=== PATIENT | male | born 1960 | race Caucasian/White ===

== ENCOUNTER 2019-02-26 19:03 | Inpatient (IN) ==
[2019-02-26] MEDS ORDERED: ONDANSETRON 4 MG/2 ML VIAL IV ONE (19:32)
[2019-02-26] MEDS ORDERED: LORazepam 2 MG/ML VIAL IV ONE (19:32)
[2019-02-26] MEDS ORDERED: 0.9 % SODIUM CHLORIDE 1,000 ML IV ONE (19:33)
[2019-02-26] MEDS ORDERED: POTASSIUM CHLORIDE 20 MEQ, MAGNESIUM SULFATE 16.24 MEQ, THIAMINE 100 MG, MVI, ADULT NO.... IV SCH ×2 (19:45→22:28)
--- NOTE | 2019-02-26 20:05 | Emergency Department Note ---
Nausea/Vomiting/Diarrhea HPI - General Chief complaint: Nausea/Vomiting/Diarrhea Stated complaint: alcohol withdrawl Time Seen by Provider: 02/26/19 19:36 Source: patient Mode of arrival: ambulatory Limitations: no limitations - History of Present Illness HPI Narrative: 58-year-old male presents with tremors and intractable nausea and vomiting. States he is a bad alcoholic. Will not tell him that he may how much he drinks on a daily basis but states way too much. States he tried to stop drinking since Sunday. Really wants to stop drinking alcohol altogether. States since Sunday he has not eaten one meal because he just cannot keep anything down. Constantly vomits and has bad tremors. Feels like he is dehydrated and is not improving so he decided to come in. Is requesting help. It is extremely difficult to get information from him about how much he drinks every day and how long he is drink as his answer is constantly "too much ". States the tremors are bad but the nausea and vomiting is constant. Has vomited 5-10 times today at least. Has been trying to drink lots of water but hard to keep anything down. He cannot keep any food down whatsoever. No abdominal pain. - Related Data Allergies Allergy/AdvReac Type Severity Reaction Status Date / Time No Known Drug Allergies Allergy Unverified 02/26/19 19:04 Review of Systems All systems ED: reviewed and negative except as stated. Past Medical History - Past Medical History Medical history: Reports: DM ([id number]), kidney stones, obesity, other (Gallstones) Surgical history ED: Reports: other (Lithotripsy) - Social History smoking status: Never smoker Alcohol use: Reports: Frequently, Daily, Heavy (States at least 6 or 7 drinks of vodka and 7-Up daily) Drug use: Reports: none Physical Exam Limitations: no limitations General appearance: alert, other (Tremors present on arrival) Head: atraumatic, normocephalic, normal inspection Eye: Present: normal appearance. Absent: conjunctival injection ENT: TM's normal bilaterally, normal external ear exam, other (Mucous membranes slightly dry on arrival) Neck: Present: normal inspection, trachea midline. Absent: tenderness, lymphadenopathy Chest: Present: symmetric chest wall rise Respiratory: Present: normal lung sounds bilaterally. Absent: respiratory distress, rales/crackles, accessory muscle use Cardiovascular: Present: regular rate, normal heart sounds Abdominal: Present: normal bowel sounds. Absent: soft, distention, tenderness, guarding, mass Extremities: Present: normal inspection Neurological: Present: alert, oriented X3 Psychiatric: Present: normal affect, normal mood. Absent: homicidal ideation, suicidal ideation Skin: Present: warm, dry, intact, normal color Course Course Narrative: At [address] speak [address] Dr[address] Posada, the internal medicine specialist, she was suggested medical admit for this patient as he is experiencing with acute withdrawal symptoms and detoxing. Patient is also requesting admit and help. States she will come in and consult and take over his detox in the morning if the hospitalist will admit. At 2099 I did speak with the hospitalist, Dr. Godinez. Due to the sodium of 102 he would like us to talk to nephrology. I did speak with nephrology, Dr. godinez who will consult. He would also like us to put the patient on 800 mL oral fluid restriction a day and if he receives any IV fluids and needs to be in a normal saline base. I did speak with Dr. Godinez again who agrees to accept this patient. Will go to ICU. Vital Signs Temperature 98.2 F 02/26/19 19:04 Pulse Rate 95 H 02/26/19 19:04 Respiratory Rate 18 02/26/19 19:04 Blood Pressure 134/74 02/26/19 19:04 Pulse Oximetry (%) 99 02/26/19 19:04 Temperature 98.2 F 02/26/19 19:04 Pulse Rate 94 H 02/26/19 21:02 Respiratory Rate 15 02/26/19 21:02 Blood Pressure 158/94 02/26/19 21:02 Pulse Oximetry (%) 98 02/26/19 21:02 Nausea/Vomiting/Diarrhea - Lab Data Lab results reviewed: Yes I reviewed the patient's lab results. Result diagrams: 02/26/19 19:52 02/26/19 19:52 Lab Results 02/26/19 02/26/19 02/26/19 Range/Units 19:52 19:52 19:52 WBC 6.9 (4.5-11.0) K/mcL RBC 3.49 L (4.50-5.90) M/mcL Hgb 11.8 L (13.5-16.5) g/dL Hct 34.2 L (41.0-55.0) % MCV 98.0 (80.0-100.0) fL MCH 33.7 (26.0-34.0) pg MCHC 34.4 (31.0-36.0) g/dL RDW 13.3 (11.5-14.5) % Plt Count 126 L (140-440) K/mcL MPV 8.3 (7.4-10.4) fL Gran % 76.8 (38.0-78.0) % Lymph % (Auto) 16.3 (15.5-49.0) % Barry % (Auto) 6.3 (1.0-12.0) % Eos % (Auto) 0.3 (0.0-7.0) % Baso % (Auto) 0.3 (0.0-2.0) % Gran # 5.3 (1.8-8.0) K/mcL Lymph # (Auto) 1.1 L (1.5-4.8) K/mcL Barry # (Auto) 0.4 (0.1-0.9) K/mcL Eos # (Auto) 0 (0.0-0.7) K/mcL Baso # (Auto) 0 (0.0-0.3) K/mcL Sodium 102 L* (133-145) mmol/L Potassium 3.2 L (3.3-5.1) mmol/L Chloride 61 L (96-108) mmol/L Carbon Dioxide 27 (22-30) mmol/L Anion Gap 14.0 (8-16) BUN 7 (6-20) mg/dl Creatinine 0.9 (0.7-1.2) mg/dl GFR Calculation 94 Glucose 120 H (70-105) mg/dL Calcium 7.2 L (8.6-10.4) mg/dl Magnesium 0.7 L* (1.6-2.5) mg/dL Total Bilirubin 1.8 H (0.0-1.0) mg/dL AST 114 H (0-37) U/l ALT 41 H (0-40) U/l Alkaline Phosphatase 103 (39-117) U/L Total Protein 7.5 (5.9-8.4) gm/dL Albumin 3.7 (3.2-5.2) gm/dL Globulin 3.8 H (2.2-3.7) gm/dL Albumin/Globulin Ratio 1.0 (1.0-2.3) Ethyl Alcohol < 0.010 (<0.010) gm/dl Disposition Pt seen by [facility]/PA only: Yes Clinical Impression: Alcohol abuse, Alcohol withdrawal delirium, acute, mixed level of activity, Intractable vomiting with nausea, Tremor, Hyponatremia Disposition: Xfer As Inpt ([facility]) Condition: Serious Referrals: Haja Roper ARNP [Primary Care Provider] -
[2019-02-26 20:35] LABS: Basophils # (Auto) 0 K/mcL (0.0-0.3); Basophils % (Auto) 0.3 % (0.0-2.0); Eosinophils # (Auto) 0 K/mcL (0.0-0.7); Eosinophils % (Auto) 0.3 % (0.0-7.0); Granulocytes % (Auto) 76.8 % (38.0-78.0); Hematocrit 34.2 % (41.0-55.0); Hemoglobin 11.8 g/dL (13.5-16.5); Lymphocytes # (Auto) 1.1 K/mcL (1.5-4.8); Lymphocytes % (Auto) 16.3 % (15.5-49.0); Mean Corpuscular HGB Conc 34.4 g/dL (31.0-36.0); Mean Platelet Volume 8.3 fL (7.4-10.4); Monocytes # (Auto) 0.4 K/mcL (0.1-0.9); Monocytes % (Auto) 6.3 % (1.0-12.0); Platelet Count 126 K/mcL (140-440); RBC 3.49 M/mcL (4.50-5.90); Red Cell Distribution Width 13.3 % (11.5-14.5); WBC 6.9 K/mcL (4.5-11.0)
[2019-02-26 20:59] LABS: Alcohol, Blood < 10.0 mg/dL (<10); Alcohol,Blood < 0.010 gm/dl (<0.010)
[2019-02-26 21:07] LABS: ALT/SGPT 41 U/l (0-40); AST/SGOT 114 U/l (0-37); Albumin 3.7 gm/dL (3.2-5.2); Alkaline Phosphatase 103 U/L (39-117); Bilirubin,Total 1.8 mg/dL (0.0-1.0); Blood Urea Nitrogen 7 mg/dl (6-20); Calcium 7.2 mg/dl (8.6-10.4); Carbon Dioxide 27 mmol/L (22-30); Chloride 61 mmol/L (96-108); Globulin 3.8 gm/dL (2.2-3.7); Glomerular Filtration Rate 94; Glucose 120 mg/dL (70-105)
--- NOTE | 2019-02-26 21:30 | Internal Med History&Physical ---
Medical - H&P: [facility] Patient information: Note initiated : 02/26/19 at 9:27 pm Service Date, if different from initiated Date: [] Patient: Primitivo Krueger a 58 y/o M admitted on for alcohol withdrawl. Chief Complaint: [] Chief complaint: Nausea vomiting History of present illness: Mr. Krueger is a 58 year old M with a history of alcoholism who resides at [facility] who presents to the ER with onset of severe nausea vomiting. Patient has a long-standing history of alcoholism and currently consumes 7-8 drinks of vodka. His last drink was 72 hours ago. He started experiencing significant nausea vomiting and presented with symptoms of weakness lightheadedness dizziness. Patient has had seizures in the past and felt like symptoms were similar prior to having seizures. Initial work-up in the ER was consistent with acute hepatitis with elevated bilirubin/LFTs and a critical sodium of 102. Subsequent nephrology and hospitalist service consulted for evaluation in light of impending seizure. At the time of evaluation patient is alert but tremulous lightheaded. He was able to endorse history as above. He appears intermittently confused. A detailed history could not be obtained except for review of medical charts and discussing with ER physician. Review of systems Patient denies chest pain, fever, diarrhea, abdominal pain. He endorses to headache but denies photophobia or neck stiffness. He denies bloody emesis or bloody stool Medical - H&P: H Medical history: DM type II Nephrolithiasis Surgical history: Lithotripsy Social history: Lives at [facility] [place] [facility] [place]. 2 sons Smoking status: Never smoker Drug use: none Alcohol use: heavy (In excess of 6-8 drinks of vodka) Medical - H&P: Meds Home Medications Medication Instructions Recorded Confirmed Type Lisinopril [Zestril] mg PO QDAY 02/26/19 History metFORMIN HCL [Fortamet] 1,000 mg PO BID 02/26/19 02/26/19 History Allergies Allergy/AdvReac Type Severity Reaction Status Date / Time No Known Drug Allergies Allergy Unverified 02/26/19 19:04 Medical - H&P: Exam - Constitutional Vitals: Temp Pulse Resp BP Pulse Ox 98.2 F 94 H 15 158/94 98 02/26/19 19:04 02/26/19 21:02 02/26/19 21:02 02/26/19 21:02 02/26/19 21:02 General appearance: morbidly obese Exam: Alert but anxious Head normocephalic Eye movement symmetrical Oral cavity dry no ear nose discharge Diminished breath sounds bases S1-S2 regular rhythm no murmur neck no lymphadenopathy Abdomen soft nontender Lower extremity no cyanosis clubbing no joint swelling Skin no suspicious lesion psych anxious and tremulous but cooperative neuro symmetrical strength bilaterally Medical - H&P: Reslt - Labs CBC & Chem 7: 02/27/19 04:00 02/27/19 04:00 Labs: Short CBC 02/26/19 Range/Units 19:52 WBC 6.9 (4.5-11.0) K/mcL Hgb 11.8 L (13.5-16.5) g/dL Hct 34.2 L (41.0-55.0) % Plt Count 126 L (140-440) K/mcL BMP 02/26/19 19:52 Sodium 102 L* Potassium 3.2 L Chloride 61 L Carbon Dioxide 27 BUN 7 Creatinine 0.9 Glucose 120 H Calcium 7.2 L Liver Function 02/26/19 Range/Units 19:52 Total Bilirubin 1.8 H (0.0-1.0) mg/dL AST 114 H (0-37) U/l ALT 41 H (0-40) U/l Alkaline Phosphatase 103 (39-117) U/L Albumin 3.7 (3.2-5.2) gm/dL Medical - H&P: A/P (1) Hyponatremia Current visit: Yes Status: Acute * Critical hyponatremia at 102. Emergent ICU admit/nephrology consult/4 hourly sodium checks/gradual sodium replacement. Likely secondary to alcoholism and associated nausea vomiting and poor oral intake. Check urine and serum osmolality/sodium. Nephrology consult * Alcohol withdrawal-admit to ICU, high risk seizure secondary to DT/hyponatremia lowering seizure threshold. * Low magnesium and K- Replace as indicated * Acute alcoholic hepatitis with elevated LFTs. Check INR to evaluate discriminant function. * History of [id number] diabetes * Nephrolithiasis * Full code * prophylaxis heparin Plan * ICU admit * Nephrology consult * Behavioral health consult for detox * Urine and serum/osmolality, urine sodium * 4 hourly sodium checks * Frequent neuro checks-high risk seizure * Alcohol withdrawal management per protocol Patient critically ill with impending seizures and a critical sodium of 102 mandating close neuro checks and frequent sodium levels monitoring and treatment. Patient will be transferred to ICU Critical time spent in excess of 35 minutes on management of critical hyponatrem ia and alcohol withdrawal in addition to time spent on history and physical
[2019-02-26 21:38] LABS: POC Blood Urea Nitrogen 6 mg/dl (6-20); POC CO2 30 mmol/L (22-30); POC Calcium, Ionized 0.84 mmol/L (1.16-1.32); POC Chloride 66 mmol/L (96-108); POC Creatinine 0.8 mg/dl (0.7-1.2); POC Glucose, Random 111 mg/dL (70-105); POC Potassium 3.5 mmol/L (3.3-5.1); POC Sodium 109 mmol/L (133-145)
[2019-02-26 22:13] LABS: Appearance,Urine HAZY; Bacteria,Urine FEW /hpf (0); Bilirubin,Urine NEG (NEG); Color,Urine YELLOW; Culture Indicated,Urine YES; Glucose,Urine (UA) NEGATIVE (NEG); Ketones,Urine NEG (NEG); Leukocyte Esterase,Urine 500 /uL (NEG); Mucus,Urine FEW /hpf (0); Nitrate,Urine NEG (NEG); Protein,Urine NEG (NEG); Specific Gravity,Urine 1.004 (1.000-1.035); Urine Blood 0.03 mg/dL (<0.03); Urine RBC 1 /hpf (0-1); Urine Squamous Epithelial Cell 0 /hpf (0-4); Urine WBC > 182 /hpf (0-4); Urobilinogen,Urine NEG (NEG)
[2019-02-26 22:17] LABS: Amphetamine Screen,Urine NONE DETECTED (NONDETECTED); Barbiturate Screen,Urine NONE DETECTED (NONDETECTED); Benzodiazepines Screen,Urine NONE DETECTED (NONDETECTED); Cannabinoid Screen,Urine NONE DETECTED (NONDETECTED); Cocaine Screen,Urine NONE DETECTED (NONDETECTED); Opiate Screen,Urine NONE DETECTED (NONDETECTED); Oxycodone, Urine Screen NONE DETECTED (NONDETECTED); Phencyclidine Screen,Urine NONE DETECTED (NONDETECTED)
[2019-02-26] MEDS ORDERED: ACETAMINOPHEN 1,000 MG/100 ML BOTTLE IV PRN (22:28)
[2019-02-26] MEDS ORDERED: POTASSIUM CHLORIDE 40 MEQ in DEXTROSE 5% IN WATER 500 ML IV PRN (22:28)
[2019-02-26] MEDS ORDERED: 0.9 % SODIUM CHLORIDE 1,000 ML IV SCH (22:28)
[2019-02-26] MEDS ORDERED: chlordiazePOXIDE 25 MG CAPSULE PO PRN (22:28)
[2019-02-26] MEDS ORDERED: POTASSIUM CHLORIDE 20 MEQ PACKET PO PRN (22:28)
[2019-02-26] MEDS ORDERED: guaiFENesin/CODEINE 10 ML UDC PO PRN (22:28)
[2019-02-26] MEDS ORDERED: PROMETHAZINE 25 MG/ML VIAL IV PRN (22:28)
[2019-02-26] MEDS ORDERED: ONDANSETRON 4 MG/2 ML VIAL IV PRN (22:28)
[2019-02-26] MEDS ORDERED: ACETAMINOPHEN 325 MG TABLET PO PRN (22:28)
[2019-02-26] MEDS ORDERED: traZODone HCL 50 MG TABLET PO PRN (22:28)
[2019-02-26] MEDS ORDERED: LORazepam 2 MG/ML VIAL IV PRN (22:28)
[2019-02-26] MEDS: 0.9 % SODIUM CHLORIDE 10 ML SYRINGE IV SCH (22:50)
[2019-02-26 23:09] LABS: INR 1.3 (0.9-1.1); Prothrombin Time 16.2 sec (11.9-14.5)
[2019-02-26] MEDS ORDERED: MAGNESIUM SULFATE 2 GM/50 ML BAG IV ONE (23:25)
[2019-02-26] MEDS: MAGNESIUM SULFATE 2 GM/50 ML BAG IV PRN (23:32)
[2019-02-27] MEDS ORDERED: 0.9 % SODIUM CHLORIDE 1,000 ML IV SCH ×2 (00:35→02:17)
[2019-02-27] MEDS ORDERED: ACETAMINOPHEN 325 MG TABLET PO ONE (04:20)
[2019-02-27] MEDS: 0.9 % SODIUM CHLORIDE 10 ML SYRINGE IV SCH ×2 (04:25→13:55)
[2019-02-27 05:26] LABS: Hematocrit 32.7 % (41.0-55.0); Hemoglobin 11.3 g/dL (13.5-16.5); Mean Cell Volume 98.4 fL (80.0-100.0); Mean Corpuscular HGB Conc 34.6 g/dL (31.0-36.0); Mean Platelet Volume 8.4 fL (7.4-10.4); Platelet Count 91 K/mcL (140-440); RBC 3.32 M/mcL (4.50-5.90); Red Cell Distribution Width 13.5 % (11.5-14.5); WBC 5.5 K/mcL (4.5-11.0)
[2019-02-27 05:45] LABS: Band Neutrophils % 1 % (0-10); Lymphocytes % 17 % (15-49); Monocytes % (Manual) 7 % (1-12); Platelet Estimate DECREASED (NORMAL); RBC Morphology NORMAL (NORMAL); Segmented Neutrophils % 75 % (38-78)
[2019-02-27 06:42] LABS: ALT/SGPT 38 U/l (0-40); AST/SGOT 104 U/l (0-37); Albumin 3.4 gm/dL (3.2-5.2); Albumin/Globulin Ratio 0.9 (1.0-2.3); Alkaline Phosphatase 96 U/L (39-117); Bilirubin,Direct 0.7 mg/dL (0.0-0.3); Bilirubin,Total 1.6 mg/dL (0.0-1.0); Blood Urea Nitrogen 8 mg/dl (6-20); Calcium 7.3 mg/dl (8.6-10.4); Carbon Dioxide 24 mmol/L (22-30); Chloride 75 mmol/L (96-108); Globulin 3.7 gm/dL (2.2-3.7); Glomerular Filtration Rate 105; Glucose 98 mg/dL (70-105); Lactate Dehydrogenase 207 U/L (94-250); Phosphorous 2.2 mg/dL (2.7-4.5); Triglycerides 40 mg/dl (<150); Uric Acid 4.6 mg/dL (2.5-8.0)
--- NOTE | 2019-02-27 07:57 | Nephrology Consult Note ---
History of Present Illness - Reason for Consult Patient information: Note initiated : 02/27/19 at 7:54 am Service Date, if different from initiated Date: [] Patient: Primitivo Krueger 58 y/o M admitted on 02/26/19 for alcohol withdrawl. Chief Complaint: [] Consult date: 02/26/19 hyponatremia Requesting physician: Omar Vera - Chief Complaint I want to quit drinking and I feel bad - History of Present Illness The patient is a 58 yr old male with a hx of DM and HTN on oral Rx who is a bar cert occupational therapy asst. He drinks 0.5 to 1 fifth of vodka qD. He has had 2 alcohol withdrawal seizures in his life but no anti-sz Rx. He stateed no EtOH since 02/23 stopping cold turkey but started to feel poorly with jitters, N/V and had a few more drinks up to . He tresented to [facility] with tremulousness, confusion and serum Na 0f 102, Mg 0.7 and U/A with Sp. Grav 1.005 (rules out SIADH). He believes he lost 10 lb of total body weight with his N/V and he was hypotensive and tachy for a while. No seizures here and CWAI scores <10. He was given thiamin and MVI in a NS based solution and then NS with a stabe rate of Na increase from 102 to 117 over ~8 hrs for an initial rate of 2 meq/hr. At 4 am the rate of saline was reduced to 20-50 cc/hr and a 4th serum Na is pending. His mom of esophageal CA and UGI hemorage as a complication of alcoholism. Review of Systems Constitutional: as per HPI, weakness, weight loss Eyes: bilateral: diplopia (Eye movement jumpy) Nose, mouth and throat: as per HPI Cardiovascular: as per HPI, lightheadedness, rapid heart rate Respiratory: as per HPI Gastrointestinal: as per HPI, nausea, vomiting (Can't keep anythimg down, 10 lb weight loss) Genitourinary: as per HPI Musculoskeletal: as per HPI, muscle weakness Integumentary: as per HPI Neurological: abnormal gait, confusion, other visual disturbances Psychiatric: as per HPI Endocrine: as per HPI Hematologic/Lymphatic: as per HPI Allergic/Immunologic: as per HPI Past History Past medical history: Medical history: HTN on ACEi DM type II on metformin Nephrolithiasis Surgical history: Lithotripsy Social Hx: Smoking status: Never smoker Drug use: none Alcohol use: heavy (In excess of 500cc/day of vodka) Works as Bar senior qa engineer/flatbed stitcher Family Mother: slcoholic and of esophageal cancer Medications and Allergies Home Medications Medication Instructions Recorded Confirmed Type Lisinopril [Zestril] mg PO QDAY 02/26/19 History metFORMIN HCL [Fortamet] 1,000 mg PO BID 02/26/19 02/26/19 History Allergies Allergy/AdvReac Type Severity Reaction Status Date / Time No Known Drug Allergies Allergy Unverified 02/26/19 19:04 Exam - Vital Signs Vital signs: Temp Pulse Resp BP Pulse Ox 98.6 F 87 12 110/68 96 02/27/19 02:01 02/27/19 07:01 02/27/19 07:01 02/27/19 07:01 02/27/19 07:01 - General Appearance General appearance: well-developed, well-nourished, appears started age, anxious EENT: ATNC, PERRL, mucous membranes dry, hearing intact, vision intact Neck: no JVD, no thyromegaly, no carotid bruit Cardiology: no murmurs, no rub, no gallops, no edema Gastrointestinal: normoactive bowel sounds, no guarding, obese Integumentary: no rash Neurologic: no focal deficit, no asterixis, alert and oriented x3, strength 5/5, CN 3-12 intact (Minimal nystagmus but poor pursuit with MARKED saccades) Musculoskeletal: no deformities, no erythema, no cyanosis, no clubbing Psychiatric: mood/affect appropriate Results - Lab Results 02/27/19 04:00 02/27/19 04:00 Most recent lab results Calcium 7.3 mg/dl (8.6-10.4) L 02/27/19 04:00 Phosphorus 2.2 mg/dL (2.7-4.5) L 02/27/19 04:00 Magnesium 1.7 mg/dL (1.6-2.5) 02/27/19 04:00 Assessment and Plan (1) Hyponatremia Well managed O/N with 2 mEq/L increase with fluid restriction orally and NS based IVF at 250 => 200=> 50 cc/hr. From here on out he still needs NS as his BP is lower than his baseline due to N/V GI fluid loss and replacement with hypotonic VODKA Urine specific gravity r/o SIADH. Could be "beer potomania", reset osmostat but lack of sx at 102 mEq/l strongly suggest he is cronically hyponatremic. Decrease NS to 100 cc/hr Replace K/Mg/PO4 as need Glucerena for source of po fluids as it is isosmolar. q 6 hour labs for nex 24 hours Naltrexone as outpatient for etoh abuse No meds associated with hyponatremia (HCTZ, ACEi, SRI's or SNRI's, anti- epileptics) Status: Acute (2) Electrolyte and fluid disorder Serial Mg, Phos and K. HIGH RISK FOR HYPOPHOSPHATEMIA Check q 12 hours and replace as needed. Status: Acute Priority: High (3) Essential hypertension Currently low BP due to volume depeation Hold/D/C ACEi When BP > 140 mmHg start LOSARTAN to avoid any contribution of ACEi to chronic hyponatremia NO THIAZIDES Status: Chronic Priority: Medium
[2019-02-27] MEDS: MAGNESIUM SULFATE 2 GM/50 ML BAG IV PRN (08:40)
[2019-02-27] MEDS: HEPARIN 5,000 UNIT/ML VIAL SQ SCH ×2 (08:40→09:00)
[2019-02-27] MEDS: MULTIVIT,THER IRON,CA,FA & MIN 1 TABLET PO SCH (08:41)
[2019-02-27] MEDS: DOCUSATE SODIUM 100 MG CAPSULE PO SCH ×2 (08:41→20:41)
[2019-02-27] MEDS: CYANOCOBALAMIN (VITAMIN B-12) 500 MCG TABLET PO SCH ×2 (08:41→20:41)
[2019-02-27] MEDS: FOLIC ACID 1 MG TABLET PO SCH (08:41)
[2019-02-27] MEDS: THIAMINE 100 MG in 0.9 % SODIUM CHLORIDE 50 ML IV SCH (09:24)
--- NOTE | 2019-02-27 09:59 | Internal Medicine Consult Note ---
Medical - CN: HPI - Data of Consult Primary Care Provider: Haja Roper - Consult Narrative History of present illness: Mr. Krueger is a 58 year old male who reports history of alcohol use onset age 22. Initially, started drinking 1-2 (12oz) beer on weekends. He got a job with [employer] and started spending time with co-workers who "drank like a fish", which resulted in patient drinking 6(12oz) beer every other day. Patient moved home, after quitting his job to help his ailing parents and after their , increased alcohol consumption to include liquor use. Patient drinks over 1/2 5^th vodka daily for the last 4-5 years. Last drink one day ago. Patient reports needing to drink first thing in the morning and undergoing withdrawal symptoms if he tries to stop. He does recall having a seizure a few years ago when he tried to stop on his own. Denies use of benzodizepines, opioids, methamphetamines, cocaine, tobacco, THC. He has no history of treatment including detox. Patient has no history of treatment with MAT. He reports his PCP, Haja Mathis, made a suggestion one time to give him medication that would make him sick if he drank and patient did not want to pursue that option. Patient denies any history of mental health dx. He denies history of trauma/abuse; denies suicidal or homicidal ideation. Patient's mother has ETOH use disorder. He reports that he would like to stay sober so he can be there for his grandkids. CC: Omar Vera - EENT Eyes: Absent: blurry vision, change in vision, irritation, loss of vision, spots in vision, tunnel vision Ears: Present: as per HPI Nose, mouth and throat: Present: as per HPI - Cardiovascular Cardiovascular: Absent: chest pain, dyspnea on exertion, edema, irregular heart rhythm, leg edema, lightheadedness, syncope - Gastrointestinal Gastrointestinal: Present: nausea, vomiting. Absent: abdominal pain, change in bowel habits, change in stool character - Musculoskeletal Musculoskeletal: Absent: abnormal gait, back pain, joint swelling, muscle weakness, myalgias, neck pain, numbness, stiffness, tingling - Integumentary Integumentary: Absent: changing lesions, dry skin, erythema, lesions - Neurological Neurological: Absent: abnormal hearing, abnormal movements, abnormal speech, behavioral changes, confusion, dizziness, focal weakness, headache(s), loss of vision, syncope, tremor(s), vertigo - Psychiatric Psychiatric: Absent: anxiety, auditory hallucinations, change in libido, depression, difficulty concentrating, hallucinations, irritability, panic attacks, suicidal ideation, visual hallucinations - Hematologic/Lymphatic Hematologic/Lymphatic: Absent: easy bleeding, easy bruising, lymphadenopathy - Allergic/Immunologic Allergic/Immunologic: Absent: tongue swelling, throat swelling, uticaria, wheezing, lip swelling Medical - CN: Meds Home Medications Medication Instructions Recorded Confirmed Type Lisinopril [Zestril] mg PO QDAY 02/26/19 History metFORMIN HCL [Fortamet] 1,000 mg PO BID 02/26/19 02/26/19 History Allergies Allergy/AdvReac Type Severity Reaction Status Date / Time No Known Drug Allergies Allergy Unverified 02/26/19 19:04 Medical - CN: Exam - Constitutional Vitals: Temp Pulse Resp BP Pulse Ox 97.8 F 104 H 20 142/82 99 02/27/19 08:00 02/27/19 08:00 02/27/19 08:00 02/27/19 08:00 02/27/19 08:00 General appearance: cooperative, no acute distress, obese - Head Head exam: Present: atraumatic - Eye Eye exam: Present: PERRL. Absent: nystagmus, periorbital swelling - ENT ENT exam: Present: normal exam - Respiratory Respiratory exam: Present: normal respiratory exam. Absent: CTAB, rhonchi, stridor, wheezes - Cardiovascular Cardiovascular exam: Present: normal rate and rhythm. Absent: JVD - GI/Abdominal GI/Abdominal exam: Present: normal bowel sounds, soft. Absent: guarding - Rectal Rectal exam: Present: deferred - Extremities Exam Extremities exam: Absent: calf tenderness - Neurological Exam Neurological exam: Present: alert, CN II-XII intact, oriented X3 - Psychiatric Psychiatric exam: Present: normal affect. Absent: agitated, anxious, depressed, homicidal ideation, manic, suicidal ideation - Skin Skin exam: Present: dry, intact Medical - CN: Result - Labs CBC & Chem 7: 02/27/19 04:00 02/27/19 04:00 Labs: Short CBC 02/26/19 02/27/19 Range/Units 19:52 04:00 WBC 6.9 5.5 (4.5-11.0) K/mcL Hgb 11.8 L 11.3 L (13.5-16.5) g/dL Hct 34.2 L 32.7 L (41.0-55.0) % Plt Count 126 L 91 L (140-440) K/mcL BMP 02/26/19 02/27/19 02/27/19 19:52 01:04 04:00 Sodium 102 L* 111 L* 117 L* Potassium 3.2 L 3.5 Chloride 61 L 75 L Carbon Dioxide 27 24 BUN 7 8 Creatinine 0.9 0.7 Glucose 120 H 98 Calcium 7.2 L 7.3 L Liver Function 02/26/19 02/27/19 Range/Units 19:52 04:00 Total Bilirubin 1.8 H 1.6 H (0.0-1.0) mg/dL Direct Bilirubin 0.7 H (0.0-0.3) mg/dL GGT 272 H (8-61) U/L AST 114 H 104 H (0-37) U/l ALT 41 H 38 (0-40) U/l Alkaline Phosphatase 103 96 (39-117) U/L Albumin 3.7 3.4 (3.2-5.2) gm/dL Urine 02/26/19 Range/Units 21:22 Urine Color Yellow Urine Appearance Hazy Urine pH 7.0 (5.0-9.0) Ur Specific Grace 1.004 (1.000-1.035) Urine Protein Neg (NEG) mg/dL Urine Glucose (UA) Negative (NEG) mg/dL Medical - CN: A/P (1) Alcohol use disorder Status: Acute (2) Alcohol withdrawal Status: Acute
[2019-02-27] MEDS ORDERED: LORazepam 1 MG TABLET PO PRN (10:02)
--- NOTE | 2019-02-27 10:24 | Behavioral Health Consult ---
History of Present Illness Patient information: Note initiated : 02/27/19 at 10:24 am Service Date, if different from initiated Date: [] Patient: Primitivo Krueger 58 y/o M admitted on 02/26/19 for alcohol withdrawl. Chief Complaint: [] Requesting Physician: Omar Vera History of present illness: Mr. Krueger is a 58 year old male who reports history of alcohol use onset age 22. Initially, started drinking 1-2 (12oz) beer on weekends. He got a job with [employer] and started spending time with co-workers who "drank like a fish", which resulted in patient drinking 6(12oz) beer every other day. Patient moved home, after quitting his job to help his ailing parents and after their , incre ased alcohol consumption to include liquor use. Patient drinks over 1/2 5^th vodka daily for the last 4-5 years. Last drink one day ago. Patient reports needing to drink first thing in the morning and undergoing withdrawal symptoms if he tries to stop. He does recall having a seizure a few years ago when he tried to stop on his own. Denies use of benzodizepines, opioids, methamphetamines, cocaine, tobacco, THC. He has no history of treatment including detox. Patient has no history of treatment with MAT. He reports his PCP, Haja Mathis, made a suggestion one time to give him medication that would make him sick if he drank and patient did not want to pursue that option. Patient denies any history of mental health dx. He denies history of trauma/abuse; denies suicidal or homicidal ideation. Patient's mother has ETOH use disorder. He reports that he would like to stay sober so he can be there for his grandkids. Review of System Constitutional: no anorexia, no chills, no fatigue, no fever(s), no frequent falls, no headache(s), no night sweats, no weakness, no weight gain, no weight loss Nose, mouth and throat: no abnormal hearing, no change in voice, no dental pain, no dizziness, no epistaxis, no headache(s), no hoarseness, no nasal congestion, no neck pain, no odynophagia, no sinus pain, no sore throat, no vertigo Cardiovascular: no chest pain, no diaphoresis, no dyspnea, no leg edema, no palpatations, no pedal edema, no syncope Respiratory: no cough, no dyspnea, no hemoptysis, no wheezing Gastrointestinal: no abdominal pain, no bloating, no change in bowel habits, no coffee ground emesis, no constipation, no diarrhea, no heartburn, no hematemesis, no hematochezia, no nausea, no vomiting Genitourinary: no dysuria, no flank pain, no urinary frequency Musculoskeletal: no abnormal gait, no arthralgias, no back pain, no joint swelling, no myalgias, no numbness, no radiating pain into limb, no stiffness Integumentary: no changing lesions, no erythema, no lesions, no photosensitivity, no rash, no sores, no swelling Neurological: no abnormal gait, no abnormal hearing, no abnormal movements, no abnormal speech, no behavioral changes, no confusion, no focal weakness, no frequent falls, no headache(s), no memory loss, no numbness, no paresthesias, no syncope, no tremor(s), no vertigo, no weakness, no other visual disturbances Psychiatric: no abnormal sleep pattern, no anxiety, no auditory hallucinations, no change in appetite, no confusion, no depression, no hallucinations, no homicidal ideation, no memory loss, no suicidal ideation, no visual hallucinations, no tactile Endocrine: no cold intolerance, no polydipsia, no polyphagia Hematologic/Lymphatic: no easy bleeding, no easy bruising, no lymphadenopathy Allergic/Immunologic: no tongue swelling, no throat swelling, no lip swelling Past History Past medical history: DM2 Seizure secondary to ETOH withdrawal Past family history: Mother-history of ETOH d/o Past social history: Social History No Social History Section defined Medications and Allergies Home Medications Medication Instructions Recorded Confirmed Type Lisinopril [Zestril] mg PO QDAY 02/26/19 History metFORMIN HCL [Fortamet] 1,000 mg PO BID 02/26/19 02/26/19 History Allergies Allergy/AdvReac Type Severity Reaction Status Date / Time No Known Drug Allergies Allergy Unverified 02/26/19 19:04 Physical Examination Vital signs: Temp Pulse Resp BP Pulse Ox 97.8 F 96 H 27 H 125/88 99 02/27/19 08:00 02/27/19 09:49 02/27/19 09:49 02/27/19 09:01 02/27/19 09:49 General appearance: no acute distress, alert Eyes pulmonary: nonicteric ENT: oropharynx moist Neck: supple, no lymphadenopathy, no JVD Effort: normal Auscultation: bilateral: clear Cardiovascular: regular rate and rhythm Gastrointestinal: normoactive bowel sounds, non-tender, non-distended Integumentary: normal Extremities: no cyanosis, no edema, pulses normal Musculoskeletal: no deformities, ROM normal Gait: normal gait normal mental status, non-focal exam, pupils equal and round, CN II-XII normal, motor strength normal and symmetric mood appropriate, affect normal Results - Laboratory Findings CBC and BMP: 02/27/19 04:00 02/27/19 08:00 PT/INR, D-dimer PT 16.2 sec (11.9-14.5) H 02/26/19 19:52 INR 1.3 (0.9-1.1) H 02/26/19 19:52 Abnormal lab findings: Abnormal Labs 02/26/19 02/26/19 02/26/19 19:52 19:52 19:52 RBC 3.49 L Hgb 11.8 L Hct 34.2 L POC Hct MCH Plt Count 126 L Lymph # (Auto) 1.1 L Platelet Estimate PT 16.2 H INR 1.3 H POC Sodium Sodium 102 L* Potassium 3.2 L POC Chloride Chloride 61 L Anion Gap Glucose 120 H POC Glucose Calcium 7.2 L POC WB Ioniz Calcium Phosphorus Magnesium 0.7 L* Total Bilirubin 1.8 H Direct Bilirubin GGT AST 114 H ALT 41 H Globulin 3.8 H Albumin/Globulin Ratio Urine Occult Blood Ur Leukocyte Esterase Urine WBC Urine Bacteria 02/26/19 02/26/19 02/27/19 21:22 21:26 01:04 RBC Hgb Hct POC Hct 39.0 L MCH Plt Count Lymph # (Auto) Platelet Estimate PT INR POC Sodium 109 L* Sodium 111 L* Potassium POC Chloride 66 L Chloride Anion Gap Glucose POC Glucose 111 H Calcium POC WB Ioniz Calcium 0.84 L Phosphorus Magnesium Total Bilirubin Direct Bilirubin GGT AST ALT Globulin Albumin/Globulin Ratio Urine Occult Blood 0.03 A Ur Leukocyte Esterase 500 A Urine WBC > 182 H Urine Bacteria Few A 02/27/19 02/27/19 04:00 04:00 RBC 3.32 L Hgb 11.3 L Hct 32.7 L POC Hct MCH 34.1 H Plt Count 91 L Lymph # (Auto) Platelet Estimate Decreased A PT INR POC Sodium Sodium 117 L* Potassium POC Chloride Chloride 75 L Anion Gap 18.0 H Glucose POC Glucose Calcium 7.3 L POC WB Ioniz Calcium Phosphorus 2.2 L Magnesium Total Bilirubin 1.6 H Direct Bilirubin 0.7 H GGT 272 H AST 104 H ALT Globulin Albumin/Globulin Ratio 0.9 L Urine Occult Blood Ur Leukocyte Esterase Urine WBC Urine Bacteria Microbiology: Microbiology 02/26/19 21:22 Urine - Clean Void Mid-Stream Urine Culture - Preliminary 02/26/19 22:31 Nose - Both Right and Left MRSA (PCR) - Final MRSA PCR positive Alcohol Toxicology: ABG 02/26/19 19:52 Ethyl Alcohol < 0.010 PT/INR, D-dimer PT 16.2 sec (11.9-14.5) H 02/26/19 19:52 INR 1.3 (0.9-1.1) H 02/26/19 19:52 Assessment and Plan (1) Alcohol use disorder Status: Acute (2) Alcohol withdrawal Status: Acute - Narrative A/P Narrative: Counseled patient on disease of addiction and MAT treatment options. Coordinated care . Patient will be placed on Ativan Protocol with CIWA scores closely monitored. Current CIWA Discussed with patient medical comorbidities likely secondary to ETOH use d/o. Patient agrees to f/u at [facility] out-patient upon discharge. face to face time 60 min
--- NOTE | 2019-02-27 10:52 | Internal Med Progress Note ---
Medical - PN: Subj Patient information: Note initiated : 02/27/19 at 10:48 am Service Date, if different from initiated Date: [] Patient: Primitivo Krueger a 58 y/o M admitted on 02/26/19 for alcohol withdrawl. Chief Complaint: [] Interval history: Mr. Krueger is a 58 year old M with a history of alcoholism who resides at [facility] who presents to the ER with onset of severe nausea vomiting. Patient has a long-standing history of alcoholism and currently consumes 7-8 drinks of vodka. His last drink was 72 hours ago. He started experiencing significant nausea vomiting and presented with symptoms of weakness lightheadedness dizziness. Patient has had seizures in the past and felt like symptoms were similar prior to having seizures. Initial work-up in the ER was consistent with acute hepatitis with elevated bilirubin/LFTs and a critical sodium of 102. Subsequent nephrology and hospitalist service consulted for evaluation in light of impending seizure. At the time of evaluation patient is alert but tremulous lightheaded. He was able to endorse history as above. He appears intermittently confused. A detailed history could not be obtained except for review of medical charts and discussing with ER physician. 02/27-patient doing better. CIWA score around 5. Frequent sodium checks. Sodium rise slightly above goal. Nephrology on board. Current sodium 117. Continue treatment for alcohol withdrawal per protocol. No overnight fever chills or seizure episodes. No telemetry events. - Constitutional Vitals: Vital Signs Temp Pulse Resp BP Pulse Ox 97.8 F 96 H 27 H 125/88 99 02/27/19 08:00 02/27/19 09:49 02/27/19 09:49 02/27/19 09:01 02/27/19 09:49 Period Temp Pulse Resp BP Sys/Miller Pulse Ox Last 24 Hr 97.8 F-99.1 F 87-104 11-27 93-158/60-94 88-100 Intake and Output 02/26/19 02/27/19 02/27/19 21:59 05:59 13:59 Intake Total 1000 1318 101 Output Total 2475 750 Balance 1000 -3457 -649 Weight 237 lb 230 lb Intake & Output: Intake & Output 02/26/19 02/27/19 02/27/19 21:59 05:59 13:59 Intake Total 1000 1318 101 Output Total 2475 232 Balance 3013 -0178 -154 Weight 237 lb 230 lb Intake: IV 1000 1318 101 Sodium Chloride 0.9% 1,000 ml @ 1000 243 150 mls/hr IV .Q6H40M [facility] Rx#: [id number] Potassium Chloride 20 Meq 425 Magnesium Sulfate 16.24 Meq Vitamin B1 100 mg Infuvite Adult 10 ml In Sodium Chloride 0.9% 1,000 ml @ As Directed IV .Q0M [facility] Rx#:[id number] Vitamin B1 100 mg In Sodium 51 Chloride 0.9% 50 ml @ 50 mls/hr IV DAILY [facility] Rx#:[id number] Output: Void Amount [id number] 750 Other: Urine Appearance Clear Clear Urine Color Light [place] Pale Urine Odor Normal Normal General appearance: no acute distress Exam: Alert oriented Nonlabored breathing No anxiety Nondistended abdomen No telemetry events Medical - PN: Obj Da - Labs CBC & Chem 7: 02/27/19 04:00 02/27/19 04:00 Labs: Abnormal Lab Results 02/27/19 02/27/19 02/27/19 04:00 04:00 01:04 RBC 3.32 L Hgb 11.3 L Hct 32.7 L POC Hct MCH 34.1 H Plt Count 91 L Lymph # (Auto) Platelet Estimate Decreased A PT INR POC Sodium Sodium 117 L* 111 L* Potassium POC Chloride Chloride 75 L Anion Gap 18.0 H Glucose POC Glucose Calcium 7.3 L POC WB Ioniz Calcium Phosphorus 2.2 L Magnesium Total Bilirubin 1.6 H Direct Bilirubin 0.7 H GGT 272 H AST 104 H ALT Globulin Albumin/Globulin Ratio 0.9 L Urine Occult Blood Ur Leukocyte Esterase Urine WBC Urine Bacteria 02/26/19 02/26/19 02/26/19 21:26 21:22 19:52 RBC Hgb Hct POC Hct 39.0 L MCH Plt Count Lymph # (Auto) Platelet Estimate PT 16.2 H INR 1.3 H POC Sodium 109 L* Sodium Potassium POC Chloride 66 L Chloride Anion Gap Glucose POC Glucose 111 H Calcium POC WB Ioniz Calcium 0.84 L Phosphorus Magnesium Total Bilirubin Direct Bilirubin GGT AST ALT Globulin Albumin/Globulin Ratio Urine Occult Blood 0.03 A Ur Leukocyte Esterase 500 A Urine WBC > 182 H Urine Bacteria Few A 02/26/19 02/26/19 19:52 19:52 RBC 3.49 L Hgb 11.8 L Hct 34.2 L POC Hct MCH Plt Count 126 L Lymph # (Auto) 1.1 L Platelet Estimate PT INR POC Sodium Sodium 102 L* Potassium 3.2 L POC Chloride Chloride 61 L Anion Gap Glucose 120 H POC Glucose Calcium 7.2 L POC WB Ioniz Calcium Phosphorus Magnesium 0.7 L* Total Bilirubin 1.8 H Direct Bilirubin GGT AST 114 H ALT 41 H Globulin 3.8 H Albumin/Globulin Ratio Urine Occult Blood Ur Leukocyte Esterase Urine WBC Urine Bacteria Meds: Medications Acetaminophen (Tylenol) 650 mg PO Q4-6HP PRN PRN Reason: PAIN/FEVER > 101 Last Admin: 02/27/19 04:21 Dose: 650 mg Documented by: Chlordiazepoxide HCl (Librium) 50 mg PO Q4HP PRN PRN Reason: Alcohol Withdrawal Cyanocobalamin (Vitamin B-12) 1,000 mcg PO BID [facility] Stop: 03/03/19 21:01 Last Admin: 02/27/19 08:41 Dose: 1,000 mcg Documented by: Docusate Sodium (Colace) 100 mg PO BID [facility] Last Admin: 02/27/19 08:41 Dose: 100 mg Documented by: Folic Acid (Folic Acid) 1 mg PO DAILY [facility] Last Admin: 02/27/19 08:41 Dose: 1 mg Documented by: Guaifenesin/Codeine Phosphate (Robitussin Ac) 10 ml PO Q4HP PRN PRN Reason: Cough Potassium Chloride 40 meq/ (Dextrose) 520 mls @ 130 mls/hr IV UD PRN PRN Reason: K+ = or < 3.5 Magnesium Sulfate (Magnesium Sulfate) 2 gm in 50 mls @ 50 mls/hr IV UD PRN PRN Reason: MG = or < 1.7 Last Infusion: 02/27/19 09:40 Dose: Infused Documented by: Acetaminophen (Ofirmev) 1,000 mg in 100 mls @ 200 mls/hr IV Q6HP PRN PRN Reason: PAIN/FEVER > 101 Thiamine HCl 100 mg/ Sodium (Chloride) 51 mls @ 50 mls/hr IV DAILY [facility] Stop: 03/01/19 10:02 Last Infusion: 02/27/19 10:26 Dose: Infused Documented by: Sodium Chloride (Sodium Chloride 0.9%) 1,000 mls @ 20 mls/hr IV .Q24H [facility] Stop: 03/03/19 06:16 Last Admin: 02/27/19 02:19 Dose: Not Given Documented by: Iron Carb/Multivit/Lankin/Folic Acid (Multivitamin W/Minerals) 1 tab PO DAILY [facility] Last Admin: 02/27/19 08:41 Dose: 1 tab Documented by: Lorazepam (Ativan) 2 mg PO Q2HP PRN PRN Reason: CIWA-A >6 or HR >100 Mupirocin (Bactroban Oint 2%) 1 dose NARES BID [facility] Ondansetron HCl (Zofran) 4 mg IV Q4-6HP PRN PRN Reason: Nausea And Vomiting Potassium Chloride (Klor-Con) 40 meq PO DAILYP PRN PRN Reason: K+ < 3.5 Promethazine HCl (Phenergan) 6.25 mg IV Q4-6HP PRN PRN Reason: Nausea And Vomiting Senna/Docusate Sodium (Senna Plus Tablet) 1 tab PO HS [facility] Sodium Chloride (Saline Flush) 10 ml IV Q8 [facility] Last Admin: 02/27/19 04:25 Dose: Not Given Documented by: Trazodone HCl (Desyrel) 50 mg PO HSP PRN PRN Reason: Insomnia Medical - PN: A/P - Time Spent With Patient Total time spent is greater than 50% in coordination of care (as documented) at patient's floor/unit and/or counseling patient: 25 - 35 minutes (1) Hyponatremia Status: Acute Assessment and plan: * Critical hyponatremia at 102. Improved to 117. Continue 4 hourly sodium check. Continue management per nephrology. * Alcohol withdrawal-managed as per [facility] protocol. Detox physician consulted * Low magnesium and K-continue aggressive IV and oral replacement as indicated * Acute alcoholic hepatitis with elevated LFTs. INR 1.3, discriminant function 18 * History of hypertension-restart JIMMY inhibitor once systolics over 140 * History of [id number] diabetes. Continue sliding scale insulin * Nephrolithiasis * Full code * prophylaxis heparin Plan * Continue seizure watch * 4 hourly sodium checks * Prior medical condition management home meds * Alcohol withdrawal management per protocol Current Visit: Yes Medical - PN: Qual - VTE Deep Vein Thrombosis/Pulmonary Embolism Present on Admission: No
[2019-02-27] MEDS: MUPIROCIN OINT 2% 22GM NARES SCH ×2 (11:06→20:42)
[2019-02-27] MEDS: 0.9 % SODIUM CHLORIDE 1,000 ML IV SCH (11:30)
[2019-02-27] MEDS ORDERED: SENNOSIDES/DOCUSATE SODIUM 1 TAB TABLET PO SCH (21:00)
[2019-02-27 23:21] LABS: Albumin 3.8 gm/dL (3.2-5.2); Blood Urea Nitrogen 10 mg/dl (6-20); Calcium 8.3 mg/dl (8.6-10.4); Carbon Dioxide 30 mmol/L (22-30); Chloride 83 mmol/L (96-108); Glomerular Filtration Rate 74; Glucose 140 mg/dL (70-105); Phosphorous 1.6 mg/dL (2.7-4.5)
[2019-02-28] MEDS: 0.9 % SODIUM CHLORIDE 1,000 ML IV SCH ×2 (00:22→07:45)
[2019-02-28] MEDS: 0.9 % SODIUM CHLORIDE 10 ML SYRINGE IV SCH ×4 (00:24→21:08)
[2019-02-28 06:15] LABS: Hematocrit 30.8 % (41.0-55.0); Hemoglobin 10.7 g/dL (13.5-16.5); Mean Cell Volume 98.6 fL (80.0-100.0); Mean Corpuscular HGB Conc 34.6 g/dL (31.0-36.0); Mean Platelet Volume 8.4 fL (7.4-10.4); Platelet Count 100 K/mcL (140-440); RBC 3.12 M/mcL (4.50-5.90); Red Cell Distribution Width 13.6 % (11.5-14.5); WBC 4.9 K/mcL (4.5-11.0)
[2019-02-28 06:59] LABS: Albumin 3.5 gm/dL (3.2-5.2); Phosphorous 2.1 mg/dL (2.7-4.5)
--- NOTE | 2019-02-28 07:14 | Nephrology Progress Note ---
Subjective Patient information: Note initiated : 02/28/19 at 7:12 am Patient: Primitivo Krueger 58 y/o M admitted on 02/26/19 for alcohol withdrawl. Chief Complaint: Weakness Pertinent ROS: Weakness Objective - Vital Signs Vital signs: Vital Signs Temp Pulse Pulse Pulse Resp BP BP 02/28/19 05:04 99 H 18 02/28/19 05:01 98 H 17 133/83 02/28/19 04:13 99 H 02/28/19 04:01 98 H 12 122/72 02/28/19 03:01 109 H 21 113/80 02/28/19 03:00 98.1 F 21 02/28/19 02:11 96 H 13 02/28/19 02:01 99 H 14 143/85 02/28/19 01:13 98.3 F 93 H 15 02/28/19 01:01 96 H 15 134/82 02/28/19 00:15 98.0 F 90 14 138/83 02/28/19 00:01 91 H 14 138/83 02/27/19 23:34 94 H 02/27/19 23:01 95 H 15 119/74 02/27/19 22:28 02/27/19 22:06 98.1 F 106 H 16 139/68 02/27/19 22:01 107 H 17 139/68 02/27/19 21:01 93 H 15 124/67 02/27/19 20:01 94 H 14 118/78 02/27/19 20:00 98.5 F 02/27/19 19:01 97 H 15 126/76 02/27/19 18:34 95 H 12 122/69 02/27/19 18:01 104 H 19 137/85 02/27/19 17:01 90 12 132/78 02/27/19 16:23 98.5 F 94 H 12 139/79 02/27/19 16:00 98.5 F 94 H 12 139/79 02/27/19 15:01 93 H 12 137/72 02/27/19 14:01 99 H 14 140/82 02/27/19 13:25 91 H 29 H 133/95 02/27/19 12:22 87 14 02/27/19 12:01 87 12 93/60 02/27/19 12:00 97.9 F 87 12 93/60 02/27/19 11:01 100 H 16 99/65 02/27/19 10:01 22 110/92 02/27/19 09:49 96 H 27 H 02/27/19 09:01 93 H 21 125/88 02/27/19 08:01 90 14 101/73 02/27/19 08:00 97.8 F 104 H 20 142/82 Pulse Ox 02/28/19 05:04 98 02/28/19 05:01 98 02/28/19 04:13 95 02/28/19 04:01 94 02/28/19 03:01 97 02/28/19 03:00 02/28/19 02:11 99 02/28/19 02:01 98 02/28/19 01:13 97 02/28/19 01:01 96 02/28/19 00:15 97 02/28/19 00:01 98 02/27/19 23:34 94 02/27/19 23:01 99 02/27/19 22:28 95 02/27/19 22:06 99 02/27/19 22:01 99 02/27/19 21:01 99 02/27/19 20:01 100 02/27/19 20:00 02/27/19 19:01 100 02/27/19 18:34 98 02/27/19 18:01 99 02/27/19 17:01 98 02/27/19 16:23 100 02/27/19 16:00 100 02/27/19 15:01 100 02/27/19 14:01 98 02/27/19 13:25 96 02/27/19 12:22 91 02/27/19 12:01 91 02/27/19 12:00 91 02/27/19 11:01 95 02/27/19 10:01 96 02/27/19 09:49 99 02/27/19 09:01 100 02/27/19 08:01 99 02/27/19 08:00 99 Intake and Output 02/27/19 02/28/19 02/28/19 21:59 05:59 13:59 Intake Total 690 Output Total 1225 1325 Balance -535 1325 Intake: Nourishment/Supplement quantity 120 (ml) Oral 570 Output: Void Amount 1225 1325 Other: Meal Dinner Percent of Meal Consumed 100% Feeding Ability Independent Nourishment/Supplement name nepro Urine Appearance Clear Clear Urine Color Dark Yellow Bright Yellow Urine Odor Normal Weight 231 lb 8 oz Intake & Output: Intake & Output 02/27/19 02/28/19 02/28/19 21:59 05:59 13:59 Intake Total 690 Output Total 1225 1325 Balance -535 -1325 Weight 231 lb 8 oz Intake: Nourishment/Supplement quantity 120 (ml) Oral 570 Output: Void Amount 1225 1325 Other: Meal Dinner Percent of Meal Consumed 100% Feeding Ability Independent Nourishment/Supplement name nepro Urine Appearance Clear Clear Urine Color Dark Yellow Bright Yellow Urine Odor Normal - General Appearance General appearance: fatigue EENT: mucous membranes moist Neck: supple Respiratory: clear Cardiology: no edema Gastrointestinal: no tenderness Integumentary: warm and dry Neurologic: no focal deficit, alert and oriented x3 Musculoskeletal: no deformities Psychiatric: mood/affect appropriate, cooperative - Lab 02/28/19 04:08 02/28/19 04:09 Most recent lab results Calcium 8.0 mg/dl (8.6-10.4) L 02/28/19 04:09 Phosphorus 2.1 mg/dL (2.7-4.5) L 02/28/19 04:09 Magnesium 1.7 mg/dL (1.6-2.5) 02/28/19 04:09 Assessment and Plan (1) Hyponatremia Primitivo Krueger is a 58-year-old male with hypertension, diabetes mellitus type 2, alcohol use admitted on 02/26/19 for alcohol withdrawal and hyponatremia. Hyponatremia, initially hypoosmolar, severe (<120), acute (<48 hours) on chronic (>48 hours), likely symptomatic, present on arrival. Treatment: NS at 100 ml/hour. Progress: Serum Sodium increased from 124 to 128 in the past 6 hours. Recommendations/Plan: Continue NS at 60 ml/hour. Target serum sodium elevation: <4-6 mEq/L/24 hours. Goal serum sodium of >130 mEq/L. Status: Acute Priority: High
[2019-02-28 07:56] LABS: Lymphocytes % 24 % (15-49); Monocytes % (Manual) 6 % (1-12); Platelet Estimate DECREASED (NORMAL); RBC Morphology NORMAL (NORMAL); Segmented Neutrophils % 70 % (38-78)
[2019-02-28] MEDS ORDERED: 0.9 % SODIUM CHLORIDE 1,000 ML IV SCH ×2 (09:30→10:16)
[2019-02-28] MEDS: MULTIVIT,THER IRON,CA,FA & MIN 1 TABLET PO SCH (10:01)
[2019-02-28] MEDS: FOLIC ACID 1 MG TABLET PO SCH (10:01)
[2019-02-28] MEDS: DOCUSATE SODIUM 100 MG CAPSULE PO SCH ×2 (10:02→21:06)
[2019-02-28] MEDS: CYANOCOBALAMIN (VITAMIN B-12) 500 MCG TABLET PO SCH ×2 (10:02→21:08)
[2019-02-28] MEDS: MAGNESIUM SULFATE 2 GM/50 ML BAG IV PRN (10:11)
[2019-02-28] MEDS: THIAMINE 100 MG in 0.9 % SODIUM CHLORIDE 50 ML IV SCH (10:11)
[2019-02-28] MEDS: MUPIROCIN OINT 2% 22GM NARES SCH ×2 (10:11→21:07)
[2019-02-28] MEDS ORDERED: chlordiazePOXIDE 25 MG CAPSULE PO PRN (10:16)
[2019-02-28] MEDS ORDERED: POTASSIUM CHLORIDE 40 MEQ in DEXTROSE 5% IN WATER 500 ML IV PRN (10:16)
[2019-02-28] MEDS ORDERED: MAGNESIUM SULFATE 2 GM/50 ML BAG IV PRN (10:16)
[2019-02-28] MEDS ORDERED: ACETAMINOPHEN 325 MG TABLET PO PRN (10:16)
[2019-02-28] MEDS ORDERED: PROMETHAZINE 25 MG/ML VIAL IV PRN (10:16)
[2019-02-28] MEDS ORDERED: guaiFENesin/CODEINE 10 ML UDC PO PRN (10:16)
[2019-02-28] MEDS ORDERED: POTASSIUM CHLORIDE 20 MEQ PACKET PO PRN (10:16)
[2019-02-28] MEDS ORDERED: ACETAMINOPHEN 1,000 MG/100 ML BOTTLE IV PRN (10:16)
[2019-02-28] MEDS ORDERED: ONDANSETRON 4 MG/2 ML VIAL IV PRN (10:16)
[2019-02-28] MEDS ORDERED: LORazepam 1 MG TABLET PO PRN (10:16)
[2019-02-28] MEDS ORDERED: VANCOMYCIN PER PHARMACY IV SCH (11:08)
--- NOTE | 2019-02-28 11:09 | Internal Med Progress Note ---
Medical - PN: Subj Patient information: Note initiated : 02/28/19 at 11:06 am Service Date, if different from initiated Date: [] Patient: Primitivo Krueger a 58 y/o M admitted on 02/26/19 for alcohol withdrawl. Chief Complaint: [] Interval history: Mr. Krueger is a 58 year old M with a history of alcoholism who resides at [facility] who presents to the ER with onset of severe nausea vomiting. Patient has a long-standing history of alcoholism and currently consumes 7-8 drinks of vodka. His last drink was 72 hours ago. He started experiencing significant nausea vomiting and presented with symptoms of weakness lightheadedness dizziness. Patient has had seizures in the past and felt like symptoms were similar prior to having seizures. Initial work-up in the ER was consistent with acute hepatitis with elevated bilirubin/LFTs and a critical sodium of 102. Subsequent nephrology and hospitalist service consulted for evaluation in light of impending seizure. At the time of evaluation patient is alert but tremulous lightheaded. He was able to endorse history as above. He appears intermittently confused. A detailed history could not be obtained except for review of medical charts and discussing with ER physician. 02/27-patient doing better. CIWA score around 5. Frequent sodium checks. Sodium rise slightly above goal. Nephrology on board. Current sodium 117. Continue treatment for alcohol withdrawal per protocol. No overnight fever chills or seizure episodes. No telemetry events. 02/28-patient doing well. Alcohol withdrawal symptoms well controlled. Sodium rise at goal. Managed by nephrology. Denies headache/weakness. Ongoing physical therapy. Motivated to quit alcohol. Pyuria on UA growing staph aureus. Start vancomycin and de-escalate based on sensitivities. Continue close monitoring for withdrawal symptoms - Constitutional Vitals: Vital Signs Temp Pulse Resp BP Pulse Ox 98 F 106 H 18 141/88 98 02/28/19 08:01 02/28/19 08:08 02/28/19 08:01 02/28/19 08:01 02/28/19 08:08 Period Temp Pulse Resp BP Sys/Miller Pulse Ox Last 24 Hr 97.9 F-98.5 F 87-112 12-29 93-143/60-95 91-100 Intake and Output 08/01/19 08/02/19 08/02/19 21:59 05:59 13:59 Intake Total 690 1157 Output Total 1225 1325 Balance -535 1321 1157 Weight 231 lb 8 oz Intake & Output: Intake & Output 02/27/19 02/28/19 02/28/19 21:59 05:59 13:59 Intake Total 690 1157 Output Total 1225 1325 Balance -535 -1325 1157 Weight 231 lb 8 oz Intake: Nourishment/Supplement quantity 120 (ml) IV 1157 Sodium Chloride 0.9% 1,000 ml @ 1157 100 mls/hr IV .Q10H [facility] Rx#: [id number] Oral 570 Output: Void Amount 1225 1325 Other: Meal Dinner Percent of Meal Consumed 100% Feeding Ability Independent Nourishment/Supplement name nepro Urine Appearance Clear Clear Urine Color Dark Yellow Bright Yellow Urine Odor Normal General appearance: no acute distress Exam: Alert oriented No labored breathing Nondistended abdomen no anxiety or agitation No telemetry events Medical - PN: Obj Da - Labs CBC & Chem 7: 02/28/19 04:08 02/28/19 04:09 Labs: Abnormal Lab Results 02/28/19 02/28/19 02/27/19 04:09 04:08 22:00 RBC 3.12 L Hgb 10.7 L Hct 30.8 L POC Hct MCH 34.2 H Plt Count 100 L Lymph # (Auto) Platelet Estimate Decreased A PT INR POC Sodium Sodium 128 L 124 L Potassium 3.2 L POC Chloride Chloride 87 L 83 L Anion Gap Glucose 118 H 140 H POC Glucose Calcium 8.0 L 8.3 L POC WB Ioniz Calcium Phosphorus 2.1 L 1.6 L Magnesium Total Bilirubin Direct Bilirubin GGT AST ALT Globulin Albumin/Globulin Ratio Urine Occult Blood Ur Leukocyte Esterase Urine WBC Urine Bacteria 02/27/19 02/27/19 02/27/19 20:15 13:50 08:00 RBC Hgb Hct POC Hct MCH Plt Count Lymph # (Auto) Platelet Estimate PT INR POC Sodium Sodium 123 L 121 L 116 L* Potassium POC Chloride Chloride Anion Gap Glucose POC Glucose Calcium POC WB Ioniz Calcium Phosphorus Magnesium Total Bilirubin Direct Bilirubin GGT AST ALT Globulin Albumin/Globulin Ratio Urine Occult Blood Ur Leukocyte Esterase Urine WBC Urine Bacteria 02/27/19 02/27/19 02/27/19 04:00 04:00 01:04 RBC 3.32 L Hgb 11.3 L Hct 32.7 L POC Hct MCH 34.1 H Plt Count 91 L Lymph # (Auto) Platelet Estimate Decreased A PT INR POC Sodium Sodium 117 L* 111 L* Potassium POC Chloride Chloride 75 L Anion Gap 18.0 H Glucose POC Glucose Calcium 7.3 L POC WB Ioniz Calcium Phosphorus 2.2 L Magnesium Total Bilirubin 1.6 H Direct Bilirubin 0.7 H GGT 272 H AST 104 H ALT Globulin Albumin/Globulin Ratio 0.9 L Urine Occult Blood Ur Leukocyte Esterase Urine WBC Urine Bacteria 02/26/19 02/26/19 02/26/19 21:26 21:22 19:52 RBC Hgb Hct POC Hct 39.0 L MCH Plt Count Lymph # (Auto) Platelet Estimate PT 16.2 H INR 1.3 H POC Sodium 109 L* Sodium Potassium POC Chloride 66 L Chloride Anion Gap Glucose POC Glucose 111 H Calcium POC WB Ioniz Calcium 0.84 L Phosphorus Magnesium Total Bilirubin Direct Bilirubin GGT AST ALT Globulin Albumin/Globulin Ratio Urine Occult Blood 0.03 A Ur Leukocyte Esterase 500 A Urine WBC > 182 H Urine Bacteria Few A 02/26/19 02/26/19 19:52 19:52 RBC 3.49 L Hgb 11.8 L Hct 34.2 L POC Hct MCH Plt Count 126 L Lymph # (Auto) 1.1 L Platelet Estimate PT INR POC Sodium Sodium 102 L* Potassium 3.2 L POC Chloride Chloride 61 L Anion Gap Glucose 120 H POC Glucose Calcium 7.2 L POC WB Ioniz Calcium Phosphorus Magnesium 0.7 L* Total Bilirubin 1.8 H Direct Bilirubin GGT AST 114 H ALT 41 H Globulin 3.8 H Albumin/Globulin Ratio Urine Occult Blood Ur Leukocyte Esterase Urine WBC Urine Bacteria Meds: Medications Acetaminophen (Tylenol) 650 mg PO Q4-6HP PRN PRN Reason: PAIN/FEVER > 101 Chlordiazepoxide HCl (Librium) 50 mg PO Q4HP PRN PRN Reason: Alcohol Withdrawal Cyanocobalamin (Vitamin B-12) 1,000 mcg PO BID [facility] Stop: 03/02/19 09:01 Docusate Sodium (Colace) 100 mg PO BID [facility] Folic Acid (Folic Acid) 1 mg PO DAILY [facility] Guaifenesin/Codeine Phosphate (Robitussin Ac) 10 ml PO Q4HP PRN PRN Reason: Cough Potassium Chloride 40 meq/ (Dextrose) 520 mls @ 130 mls/hr IV UD PRN PRN Reason: K+ = or < 3.5 Magnesium Sulfate (Magnesium Sulfate) 2 gm in 50 mls @ 50 mls/hr IV UD PRN PRN Reason: MG = or < 1.7 Sodium Chloride (Sodium Chloride 0.9%) 1,000 mls @ 60 mls/hr IV .[id number] [facility] Acetaminophen (Ofirmev) 1,000 mg in 100 mls @ 200 mls/hr IV Q6HP PRN PRN Reason: PAIN/FEVER > 101 Thiamine HCl 100 mg/ Sodium (Chloride) 51 mls @ 50 mls/hr IV DAILY [facility] Stop: 03/01/19 10:02 Iron Carb/Multivit/Topology Professor/Folic Acid (Multivitamin W/Minerals) 1 tab PO DAILY [facility] Lorazepam (Ativan) 2 mg PO Q2HP PRN PRN Reason: CIWA-A >6 or HR >100 Mupirocin (Bactroban Oint 2%) 1 dose NARES BID [facility] Ondansetron HCl (Zofran) 4 mg IV Q4-6HP PRN PRN Reason: Nausea And Vomiting Potassium Chloride (Klor-Con) 40 meq PO DAILYP PRN PRN Reason: K+ < 3.5 Promethazine HCl (Phenergan) 6.25 mg IV Q4-6HP PRN PRN Reason: Nausea And Vomiting Senna/Docusate Sodium (Senna Plus Tablet) 1 tab PO HS [facility] Sodium Chloride (Saline Flush) 10 ml IV Q8 [facility] Trazodone HCl (Desyrel) 50 mg PO HSP PRN PRN Reason: Insomnia Medical - PN: A/P - Time Spent With Patient Total time spent is greater than 50% in coordination of care (as documented) at patient's floor/unit and/or counseling patient: 25 - 35 minutes (1) Hyponatremia Status: Acute Assessment and plan: * Critical hyponatremia at 102. Improved to 127. Continue management per nephrology. * Alcohol withdrawal-managed as per CIWA protocol. Detox physician consulted * Complicated staph aureus UTI- start vancomycin until culture sensitivities available. Renal ultrasound to evaluate for renal abscess * Low magnesium and K-continue aggressive IV and oral replacement as indicated. Potassium 3.2 today * Acute alcoholic hepatitis with elevated LFTs. INR 1.3, discriminant function 18 * History of hypertension- JIMMY inhibitor * History of [id number] diabetes. Diabetic diet * Nephrolithiasis * Full code * prophylaxis -heparin held in light of low platelets, patient ambulating Plan * Continue alcohol withdrawal management per protocol * Renal ultrasound to rule out renal abscess * Start vancomycin per pharmacy and de-escalate based on sensitivities * Restart JIMMY inhibitor * Prior medical condition management home meds Current Visit: Yes Medical - PN: Qual - VTE Deep Vein Thrombosis/Pulmonary Embolism Present on Admission: No
[2019-02-28] MEDS: VANCOMYCIN 1,500 MG in 0.9 % SODIUM CHLORIDE 500 ML IV SCH ×2 (13:13→21:05)
--- NOTE | 2019-02-28 13:58 | Ultrasound Report ---
CLINICAL INFORMATION: Staph aureus pyuria rule out abscess COMPARISON: None. FINDINGS: Both kidneys are normal and symmetric in size, position, configuration and echotexture: Right is 11 x 5 cm and the left is 11 x 6 cm. No abscess or fluid collection appreciated. No hydronephrosis. Arterial blood flow is normal on color Doppler to both kidneys Urinary bladder volume is 154 cc with a 47 cc post void residual. No focal bladder lesions. IMPRESSION: Negative exam - no abscess identified Interpreted and Authenticated by: Primitivo Cox 02/28/19
--- NOTE | 2019-02-28 14:47 | Internal Med Progress Note ---
Medical - PN: Subj Patient information: Note initiated : 02/28/19 at 2:44 pm Patient is resting comfortably. Denies auditory, visual, tactile hallucinations. Reports difficulty falling asleep. Denies chest pain, SOB, fever, chills, tremor, abdominal pain. Has not received any Ativan. CIWA Scores documents ave 2. Librium has also been ordered prn, patient has not required the medication. Patient is requesting to f/u out-patient basis as he is determined to maintain sobriety. - Constitutional Vitals: Vital Signs Temp Pulse Resp BP Pulse Ox 99.1 F H 106 H 18 127/79 96 02/28/19 11:12 02/28/19 14:00 02/28/19 14:00 02/28/19 11:12 02/28/19 14:00 Period Temp Pulse Resp BP Sys/Miller Pulse Ox Last 24 Hr 98 F-99.1 F 90-112 12-21 100-143/66-88 94-100 Intake and Output 02/28/19 02/28/19 02/28/19 05:59 13:59 21:59 Intake Total 1677 Output Total 1325 260 Balance -1325 1417 Intake & Output: Intake & Output 02/28/19 02/28/19 02/28/19 05:59 13:59 21:59 Intake Total 1677 Output Total 1325 260 Balance -1325 1417 Intake: Nourishment/Supplement quantity 120 (ml) IV 1157 Sodium Chloride 0.9% 1,000 ml @ 1157 100 mls/hr IV .Q10H [facility] Rx#: [id number] Oral 400 Output: Void Amount 1325 260 # of times incontinent of urine 0 Other: Meal Breakfast Percent of Meal Consumed 100% Feeding Ability Independent Nourishment/Supplement name nepro Urine Appearance Clear Clear Clear Urine Color Bright Yellow Bright Yellow Bright Yellow Urine Odor Normal Normal Normal # Voids 0 General appearance: cooperative, no acute distress - Respiratory Respiratory exam: Present: CTAB. Absent: rales, rhonchi - Cardiovascular Cardiovascular exam: Present: normal rate and rhythm. Absent: JVD, systolic murmur - GI/Abdominal GI/Abdominal exam: Present: normal bowel sounds, soft. Absent: guarding - Extremities Exam Extremities exam: Absent: joint swelling, pedal edema, tenderness Additional comments: no tremor upper extremities b/l - Additional findings Additional findings: CIWA Medical - PN: Obj Da - Labs CBC & Chem 7: 02/28/19 04:08 02/28/19 04:09 Labs: Abnormal Lab Results 02/28/19 02/28/19 02/27/19 04:09 04:08 22:00 RBC 3.12 L Hgb 10.7 L Hct 30.8 L POC Hct MCH 34.2 H Plt Count 100 L Lymph # (Auto) Platelet Estimate Decreased A PT INR POC Sodium Sodium 128 L 124 L Potassium 3.2 L POC Chloride Chloride 87 L 83 L Anion Gap Glucose 118 H 140 H POC Glucose Calcium 8.0 L 8.3 L POC WB Ioniz Calcium Phosphorus 2.1 L 1.6 L Magnesium Total Bilirubin Direct Bilirubin GGT AST ALT Globulin Albumin/Globulin Ratio Urine Occult Blood Ur Leukocyte Esterase Urine WBC Urine Bacteria 02/27/19 02/27/19 02/27/19 20:15 13:50 08:00 RBC Hgb Hct POC Hct MCH Plt Count Lymph # (Auto) Platelet Estimate PT INR POC Sodium Sodium 123 L 121 L 116 L* Potassium POC Chloride Chloride Anion Gap Glucose POC Glucose Calcium POC WB Ioniz Calcium Phosphorus Magnesium Total Bilirubin Direct Bilirubin GGT AST ALT Globulin Albumin/Globulin Ratio Urine Occult Blood Ur Leukocyte Esterase Urine WBC Urine Bacteria 02/27/19 02/27/19 02/27/19 04:00 04:00 01:04 RBC 3.32 L Hgb 11.3 L Hct 32.7 L POC Hct MCH 34.1 H Plt Count 91 L Lymph # (Auto) Platelet Estimate Decreased A PT INR POC Sodium Sodium 117 L* 111 L* Potassium POC Chloride Chloride 75 L Anion Gap 18.0 H Glucose POC Glucose Calcium 7.3 L POC WB Ioniz Calcium Phosphorus 2.2 L Magnesium Total Bilirubin 1.6 H Direct Bilirubin 0.7 H GGT 272 H AST 104 H ALT Globulin Albumin/Globulin Ratio 0.9 L Urine Occult Blood Ur Leukocyte Esterase Urine WBC Urine Bacteria 02/26/19 02/26/19 02/26/19 21:26 21:22 19:52 RBC Hgb Hct POC Hct 39.0 L MCH Plt Count Lymph # (Auto) Platelet Estimate PT 16.2 H INR 1.3 H POC Sodium 109 L* Sodium Potassium POC Chloride 66 L Chloride Anion Gap Glucose POC Glucose 111 H Calcium POC WB Ioniz Calcium 0.84 L Phosphorus Magnesium Total Bilirubin Direct Bilirubin GGT AST ALT Globulin Albumin/Globulin Ratio Urine Occult Blood 0.03 A Ur Leukocyte Esterase 500 A Urine WBC > 182 H Urine Bacteria Few A 02/26/19 02/26/19 19:52 19:52 RBC 3.49 L Hgb 11.8 L Hct 34.2 L POC Hct MCH Plt Count 126 L Lymph # (Auto) 1.1 L Platelet Estimate PT INR POC Sodium Sodium 102 L* Potassium 3.2 L POC Chloride Chloride 61 L Anion Gap Glucose 120 H POC Glucose Calcium 7.2 L POC WB Ioniz Calcium Phosphorus Magnesium 0.7 L* Total Bilirubin 1.8 H Direct Bilirubin GGT AST 114 H ALT 41 H Globulin 3.8 H Albumin/Globulin Ratio Urine Occult Blood Ur Leukocyte Esterase Urine WBC Urine Bacteria Meds: Medications Acetaminophen (Tylenol) 650 mg PO Q4-6HP PRN PRN Reason: PAIN/FEVER > 101 Last Admin: 02/28/19 11:09 Dose: 650 mg Documented by: Cyanocobalamin (Vitamin B-12) 1,000 mcg PO BID [facility] Stop: 03/02/19 09:01 Docusate Sodium (Colace) 100 mg PO BID [facility] Folic Acid (Folic Acid) 1 mg PO DAILY [facility] Guaifenesin/Codeine Phosphate (Robitussin Ac) 10 ml PO Q4HP PRN PRN Reason: Cough Potassium Chloride 40 meq/ (Dextrose) 520 mls @ 130 mls/hr IV UD PRN PRN Reason: K+ = or < 3.5 Magnesium Sulfate (Magnesium Sulfate) 2 gm in 50 mls @ 50 mls/hr IV UD PRN PRN Reason: MG = or < 1.7 Sodium Chloride (Sodium Chloride 0.9%) 1,000 mls @ 60 mls/hr IV .[id number] [facility] Last Admin: 02/28/19 11:09 Dose: Not Given Documented by: Acetaminophen (Ofirmev) 1,000 mg in 100 mls @ 200 mls/hr IV Q6HP PRN PRN Reason: PAIN/FEVER > 101 Thiamine HCl 100 mg/ Sodium (Chloride) 51 mls @ 50 mls/hr IV DAILY [facility] Stop: 03/01/19 10:02 Vancomycin HCl 1,500 mg/ (Sodium Chloride) 500 mls @ 333.3 mls/hr IV Q12H [facility] Last Admin: 02/28/19 13:13 Dose: 250 mls/hr Documented by: Iron Carb/Multivit/[place]/Folic Acid (Multivitamin W/Minerals) 1 tab PO DAILY [facility] Lorazepam (Ativan) 2 mg PO Q2HP PRN PRN Reason: CIWA-A >6 or HR >100 Losartan Potassium (Cozaar) 50 mg PO DAILY [facility] Mirtazapine (Remeron) 15 mg PO HS [facility] Mupirocin (Bactroban Oint 2%) 1 dose NARES BID [facility] Ondansetron HCl (Zofran) 4 mg IV Q4-6HP PRN PRN Reason: Nausea And Vomiting Potassium Chloride (Klor-Con) 40 meq PO DAILYP PRN PRN Reason: K+ < 3.5 Promethazine HCl (Phenergan) 6.25 mg IV Q4-6HP PRN PRN Reason: Nausea And Vomiting Senna/Docusate Sodium (Senna Plus Tablet) 1 tab PO HS [facility] Sodium Chloride (Saline Flush) 10 ml IV Q8 [facility] Last Admin: 02/28/19 12:30 Dose: 10 ml Documented by: Vancomycin HCl (Vancomycin Per Pharmacy) 1 order IV UD [facility]; Protocol Medical - PN: A/P - Time Spent With Patient Total time spent is greater than 50% in coordination of care (as documented) at patient's floor/unit and/or counseling patient: 25 - 35 minutes (1) Alcohol use disorder Status: Acute Current Visit: Yes (2) Alcohol withdrawal Status: Acute Current Visit: Yes - Narrative A/P Narrative: Patient is stable. Discussed out-patient follow up, requests to schedule appointment. Continue monitoring CIWA scores, low concern for additional w/d Coordinated care . D/C Librium D/C Trazodone Start Remeron 15mg i po qhs Medical - PN: Qual - VTE Deep Vein Thrombosis/Pulmonary Embolism Present on Admission: No
[2019-02-28] MEDS ORDERED: traZODone HCL 50 MG TABLET PO PRN (21:00)
[2019-02-28] MEDS ORDERED: MIRTAZAPINE 15 MG TABLET PO SCH (21:00)
[2019-02-28] MEDS ORDERED: SENNOSIDES/DOCUSATE SODIUM 1 TAB TABLET PO SCH (21:00)
[2019-03-01] MEDS: 0.9 % SODIUM CHLORIDE 10 ML SYRINGE IV SCH ×3 (05:50→20:46)
[2019-03-01 06:16] LABS: Hematocrit 32.6 % (41.0-55.0); Mean Cell Volume 99.9 fL (80.0-100.0); Mean Corpuscular HGB Conc 33.8 g/dL (31.0-36.0); Platelet Count 107 K/mcL (140-440); RBC 3.26 M/mcL (4.50-5.90); Red Cell Distribution Width 13.9 % (11.5-14.5); WBC 5.8 K/mcL (4.5-11.0)
[2019-03-01 06:53] LABS: ALT/SGPT 47 U/l (0-40); AST/SGOT 102 U/l (0-37); Albumin 3.5 gm/dL (3.2-5.2); Albumin/Globulin Ratio 0.9 (1.0-2.3); Alkaline Phosphatase 124 U/L (39-117); Bilirubin,Direct 0.5 mg/dL (0.0-0.3); Bilirubin,Total 1.1 mg/dL (0.0-1.0); Blood Urea Nitrogen 9 mg/dl (6-20); Calcium 8.9 mg/dl (8.6-10.4); Carbon Dioxide 28 mmol/L (22-30); Chloride 93 mmol/L (96-108); Glomerular Filtration Rate 99; Glucose 116 mg/dL (70-105); Lactate Dehydrogenase 212 U/L (94-250); Phosphorous 3.2 mg/dL (2.7-4.5); Triglycerides 35 mg/dl (<150); Uric Acid 4.5 mg/dL (2.5-8.0)
--- NOTE | 2019-03-01 07:22 | Nephrology Progress Note ---
Subjective Patient information: Note initiated : 03/01/19 at 7:20 am Patient: Primitivo Krueger 58 y/o M admitted on 02/26/19 for alcohol withdrawl. Chief Complaint: Weakness Pertinent ROS: Weakness Feels better Objective - Vital Signs Vital signs: Vital Signs Temp Pulse Pulse Pulse Resp BP BP 03/01/19 03:47 98.7 F 89 18 142/87 02/28/19 23:54 97.9 F 98 H 22 140/90 02/28/19 19:27 99.0 F 101 H 20 134/80 02/28/19 16:00 98 F 102 H 18 127/79 02/28/19 15:35 98 F 98 H 18 137/76 02/28/19 14:00 94 H 106 H 18 02/28/19 11:12 99.1 F H 102 H 18 127/79 02/28/19 09:01 100/66 02/28/19 08:08 106 H 02/28/19 08:01 98 F 100 H 18 141/88 Pulse Ox 03/01/19 03:47 93 02/28/19 23:54 95 02/28/19 19:27 98 02/28/19 16:00 99 02/28/19 15:35 99 02/28/19 14:00 96 02/28/19 11:12 96 02/28/19 09:01 02/28/19 08:08 98 02/28/19 08:01 99 Intake and Output 02/28/19 03/01/19 03/01/19 21:59 05:59 13:59 Intake Total 500 Output Total 300 475 Balance 200 -475 Intake: IV 500 Vancomycin 1,500 mg In Sodium 500 Chloride 0.9% 500 ml @ 333.3 mls/hr IV Q12H [facility] Rx#: [id number] Output: Void Amount 300 475 Other: Urine Appearance Clear Clear Urine Color Bright Yellow Pale Dark Yellow Urine Odor Normal # Voids 1 Intake & Output: Intake & Output 02/28/19 03/01/19 03/01/19 21:59 05:59 13:59 Intake Total 500 Output Total 300 475 Balance 200 -475 Intake: IV 500 Vancomycin 1,500 mg In Sodium 500 Chloride 0.9% 500 ml @ 333.3 mls/hr IV Q12H [facility] Rx#: [id number] Output: Void Amount 300 475 Other: Urine Appearance Clear Clear Urine Color Bright Yellow Pale Dark Yellow Urine Odor Normal # Voids 1 - General Appearance General appearance: appears started age EENT: mucous membranes moist Neck: supple Respiratory: clear Cardiology: no edema Gastrointestinal: no tenderness Integumentary: warm and dry Neurologic: no focal deficit, alert and oriented x3 Musculoskeletal: no deformities Psychiatric: mood/affect appropriate, cooperative - Lab 03/01/19 05:05 03/01/19 05:05 Most recent lab results Calcium 8.9 mg/dl (8.6-10.4) 03/01/19 05:05 Phosphorus 3.2 mg/dL (2.7-4.5) 03/01/19 05:05 Magnesium 1.4 mg/dL (1.6-2.5) L 03/01/19 05:05 Assessment and Plan (1) Hyponatremia Primitivo Krueger is a 58-year-old male with hypertension, diabetes mellitus type 2, alcohol use admitted on 02/26/19 for alcohol withdrawal and hyponatremia. Hyponatremia, initially hypoosmolar, severe (<120), acute (<48 hours) on chronic (>48 hours), likely symptomatic, present on arrival, resolved. Progress: Serum Sodium increased from 128 to 133 in the past 24 hours. Recommendations/Plan: IVF and diet restrictions discontinued. Nephrology will sign off. Status: Acute Priority: High
[2019-03-01] MEDS ORDERED: THIAMINE 100 MG/ML VIAL ONE (08:20)
[2019-03-01] MEDS: CYANOCOBALAMIN (VITAMIN B-12) 500 MCG TABLET PO SCH ×2 (08:32→20:44)
[2019-03-01] MEDS: DOCUSATE SODIUM 100 MG CAPSULE PO SCH ×2 (08:34→20:43)
[2019-03-01] MEDS ORDERED: THIAMINE 100 MG in 0.9 % SODIUM CHLORIDE 50 ML IV SCH (09:00)
[2019-03-01] MEDS ORDERED: MULTIVIT,THER IRON,CA,FA & MIN 1 TABLET PO SCH (09:00)
[2019-03-01] MEDS ORDERED: FOLIC ACID 1 MG TABLET PO SCH (09:00)
[2019-03-01] MEDS ORDERED: MAGNESIUM OXIDE 400 MG TABLET PO SCH (09:00)
[2019-03-01] MEDS ORDERED: LOSARTAN 50 MG TABLET PO SCH (09:00)
[2019-03-01 09:07] LABS: Eosinophils % (Manual) 2 % (0-7); Lymphocytes % 19 % (15-49); Monocytes % (Manual) 7 % (1-12); Platelet Estimate DECREASED (NORMAL); RBC Morphology NORMAL (NORMAL); Segmented Neutrophils % 72 % (38-78)
[2019-03-01] MEDS: MUPIROCIN OINT 2% 22GM NARES SCH ×2 (09:47→20:47)
[2019-03-01] MEDS: VANCOMYCIN 1,500 MG in 0.9 % SODIUM CHLORIDE 500 ML IV SCH (09:57)
[2019-03-01] MEDS ORDERED: LORazepam 1 MG TABLET PO PRN (11:05)
[2019-03-01] MEDS ORDERED: guaiFENesin/CODEINE 10 ML UDC PO PRN (11:05)
[2019-03-01] MEDS ORDERED: ACETAMINOPHEN 325 MG TABLET PO PRN (11:05)
[2019-03-01] MEDS ORDERED: VANCOMYCIN PER PHARMACY IV SCH (11:05)
[2019-03-01] MEDS ORDERED: POTASSIUM CHLORIDE 40 MEQ in DEXTROSE 5% IN WATER 500 ML IV PRN (11:05)
[2019-03-01] MEDS ORDERED: ONDANSETRON 4 MG/2 ML VIAL IV PRN (11:05)
[2019-03-01] MEDS ORDERED: ACETAMINOPHEN 1,000 MG/100 ML BOTTLE IV PRN (11:05)
[2019-03-01] MEDS ORDERED: PROMETHAZINE 25 MG/ML VIAL IV PRN (11:05)
[2019-03-01] MEDS ORDERED: POTASSIUM CHLORIDE 20 MEQ PACKET PO PRN (11:05)
[2019-03-01] MEDS: MAGNESIUM OXIDE 400 MG TABLET PO SCH ×2 (14:54→20:44)
--- NOTE | 2019-03-01 18:00 | Internal Med Progress Note ---
Medical - PN: Subj Patient information: Note initiated : 03/01/19 at 6:00 pm Service Date, if different from initiated Date: [] Patient: Primitivo Krueger a 58 y/o M admitted on 02/26/19 for alcohol withdrawl. Chief Complaint: [] Interval history: Mr. Krueger is a 58 year old M with a history of alcoholism who resides at [facility] who presents to the ER with onset of severe nausea vomiting. Patient has a long-standing history of alcoholism and currently consumes 7-8 drinks of vodka. His last drink was 72 hours ago. He started experiencing significant nausea vomiting and presented with symptoms of weakness lightheadedness dizziness. Patient has had seizures in the past and felt like symptoms were similar prior to having seizures. Initial work-up in the ER was consistent with acute hepatitis with elevated bilirubin/LFTs and a critical sodium of 102. Subsequent nephrology and hospitalist service consulted for evaluation in light of impending seizure. At the time of evaluation patient is alert but tremulous lightheaded. He was able to endorse history as above. He appears intermittently confused. A detailed history could not be obtained except for review of medical charts and discussing with ER physician. 02/27-patient doing better. CIWA score around 5. Frequent sodium checks. Sodium rise slightly above goal. Nephrology on board. Current sodium 117. Continue treatment for alcohol withdrawal per protocol. No overnight fever chills or seizure episodes. No telemetry events. 02/28-patient doing well. Alcohol withdrawal symptoms well controlled. Sodium rise at goal. Managed by nephrology. Denies headache/weakness. Ongoing physical therapy. Motivated to quit alcohol. Pyuria on UA growing staph aureus. Start vancomycin and de-escalate based on sensitivities. Continue close monitoring for withdrawal symptoms 03/01-patient doing well. No overnight events. Improved sodium to 133. Denies cramps abdominal pain joint pain or rash. Electrolytes normalized. No further episode of withdrawals. No family at bedside. Anticipate discharge in 48 hours once clinically improved and sodium normalized - Constitutional Vitals: Vital Signs Temp Pulse Resp BP Pulse Ox 98.8 F 88 18 130/75 96 03/01/19 16:00 03/01/19 16:00 03/01/19 16:00 03/01/19 16:00 03/01/19 16:00 Period Temp Pulse Resp BP Sys/Miller Pulse Ox Last 24 Hr 97.9 F-99.1 F 88-101 18-22 112-142/71-90 90-98 Intake and Output 03/01/19 03/01/19 03/01/19 05:59 13:59 21:59 Intake Total 2085 900 Output Total 475 375 Balance -475 1710 900 Intake & Output: Intake & Output 03/01/19 03/01/19 03/01/19 05:59 13:59 21:59 Intake Total 2085 900 Output Total 475 375 Balance -475 1710 900 Intake: IV 1545 Vitamin B1 100 mg In Sodium 51 Chloride 0.9% 50 ml @ 50 mls/hr IV DAILY [facility] Rx#:[id number] Vancomycin 1,500 mg In Sodium 500 Chloride 0.9% 500 ml @ 333.3 mls/hr IV Q12H [facility] Rx#: [id number] Oral 540 300 GI Tube Flush 600 Output: Void Amount 475 375 Other: Meal Lunch Percent of Meal Consumed 100% Feeding Ability Independent Urine Appearance Clear Clear Urine Color Pale Dark Yellow Dark Yellow Urine Odor Normal # Voids 3 4 General appearance: no acute distress Exam: Alert oriented Nonlabored breathing Morbidly obese No lymphedema Minimal anxiety Medical - PN: Obj Da - Labs CBC & Chem 7: 03/02/19 04:39 03/02/19 04:39 Labs: Abnormal Lab Results 03/01/19 03/01/19 03/01/19 08:02 05:05 05:05 RBC 3.26 L Hgb 11.0 L Hct 32.6 L POC Hct MCH Plt Count 107 L Lymph # (Auto) Platelet Estimate Decreased A PT INR POC Sodium Sodium Potassium POC Chloride Chloride 93 L Anion Gap Glucose 116 H POC Glucose Calcium POC WB Ioniz Calcium Phosphorus Magnesium 1.4 L Total Bilirubin 1.1 H Direct Bilirubin 0.5 H GGT 275 H AST 102 H ALT 47 H Alkaline Phosphatase 124 H Globulin 4.0 H Albumin/Globulin Ratio 0.9 L Urine Occult Blood Ur Leukocyte Esterase Urine WBC Urine Bacteria Vancomycin Trough 20.4 H* 02/28/19 02/28/19 02/28/19 15:02 04:09 04:08 RBC 3.12 L Hgb 10.7 L Hct 30.8 L POC Hct MCH 34.2 H Plt Count 100 L Lymph # (Auto) Platelet Estimate Decreased A PT INR POC Sodium Sodium 128 L 128 L Potassium 3.2 L POC Chloride Chloride 87 L Anion Gap Glucose 118 H POC Glucose Calcium 8.0 L POC WB Ioniz Calcium Phosphorus 2.1 L Magnesium Total Bilirubin Direct Bilirubin GGT AST ALT Alkaline Phosphatase Globulin Albumin/Globulin Ratio Urine Occult Blood Ur Leukocyte Esterase Urine WBC Urine Bacteria Vancomycin Trough 02/27/19 02/27/19 02/27/19 22:00 20:15 13:50 RBC Hgb Hct POC Hct MCH Plt Count Lymph # (Auto) Platelet Estimate PT INR POC Sodium Sodium 124 L 123 L 121 L Potassium POC Chloride Chloride 83 L Anion Gap Glucose 140 H POC Glucose Calcium 8.3 L POC WB Ioniz Calcium Phosphorus 1.6 L Magnesium Total Bilirubin Direct Bilirubin GGT AST ALT Alkaline Phosphatase Globulin Albumin/Globulin Ratio Urine Occult Blood Ur Leukocyte Esterase Urine WBC Urine Bacteria Vancomycin Trough 02/27/19 02/27/19 02/27/19 08:00 04:00 04:00 RBC 3.32 L Hgb 11.3 L Hct 32.7 L POC Hct MCH 34.1 H Plt Count 91 L Lymph # (Auto) Platelet Estimate Decreased A PT INR POC Sodium Sodium 116 L* 117 L* Potassium POC Chloride Chloride 75 L Anion Gap 18.0 H Glucose POC Glucose Calcium 7.3 L POC WB Ioniz Calcium Phosphorus 2.2 L Magnesium Total Bilirubin 1.6 H Direct Bilirubin 0.7 H GGT 272 H AST 104 H ALT Alkaline Phosphatase Globulin Albumin/Globulin Ratio 0.9 L Urine Occult Blood Ur Leukocyte Esterase Urine WBC Urine Bacteria Vancomycin Trough 02/27/19 02/26/19 02/26/19 01:04 21:26 21:22 RBC Hgb Hct POC Hct 39.0 L MCH Plt Count Lymph # (Auto) Platelet Estimate PT INR POC Sodium 109 L* Sodium 111 L* Potassium POC Chloride 66 L Chloride Anion Gap Glucose POC Glucose 111 H Calcium POC WB Ioniz Calcium 0.84 L Phosphorus Magnesium Total Bilirubin Direct Bilirubin GGT AST ALT Alkaline Phosphatase Globulin Albumin/Globulin Ratio Urine Occult Blood 0.03 A Ur Leukocyte Esterase 500 A Urine WBC > 182 H Urine Bacteria Few A Vancomycin Trough 02/26/19 02/26/19 02/26/19 19:52 19:52 19:52 RBC 3.49 L Hgb 11.8 L Hct 34.2 L POC Hct MCH Plt Count 126 L Lymph # (Auto) 1.1 L Platelet Estimate PT 16.2 H INR 1.3 H POC Sodium Sodium 102 L* Potassium 3.2 L POC Chloride Chloride 61 L Anion Gap Glucose 120 H POC Glucose Calcium 7.2 L POC WB Ioniz Calcium Phosphorus Magnesium 0.7 L* Total Bilirubin 1.8 H Direct Bilirubin GGT AST 114 H ALT 41 H Alkaline Phosphatase Globulin 3.8 H Albumin/Globulin Ratio Urine Occult Blood Ur Leukocyte Esterase Urine WBC Urine Bacteria Vancomycin Trough Meds: Medications Acetaminophen (Tylenol) 650 mg PO Q4-6HP PRN PRN Reason: PAIN/FEVER > 101 Cyanocobalamin (Vitamin B-12) 1,000 mcg PO BID [facility] Stop: 03/02/19 09:01 Docusate Sodium (Colace) 100 mg PO BID [facility] Folic Acid (Folic Acid) 1 mg PO DAILY [facility] Guaifenesin/Codeine Phosphate (Robitussin Ac) 10 ml PO Q4HP PRN PRN Reason: Cough Potassium Chloride 40 meq/ (Dextrose) 520 mls @ 130 mls/hr IV UD PRN PRN Reason: K+ = or < 3.5 Magnesium Sulfate (Magnesium Sulfate) 2 gm in 50 mls @ 50 mls/hr IV UD PRN PRN Reason: MG = or < 1.7 Acetaminophen (Ofirmev) 1,000 mg in 100 mls @ 200 mls/hr IV Q6HP PRN PRN Reason: PAIN/FEVER > 101 Iron Carb/Multivit/Stronach/Folic Acid (Multivitamin W/Minerals) 1 tab PO DAILY [facility] Lorazepam (Ativan) 2 mg PO Q2HP PRN PRN Reason: CIWA-A >6 or HR >100 Losartan Potassium (Cozaar) 50 mg PO DAILY [facility] Magnesium Oxide (Magnesium Oxide) 400 mg PO TID [facility] Last Admin: 03/01/19 14:54 Dose: 400 mg Documented by: Mirtazapine (Remeron) 15 mg PO HS [facility] Mupirocin (Bactroban Oint 2%) 1 dose NARES BID [facility] Ondansetron HCl (Zofran) 4 mg IV Q4-6HP PRN PRN Reason: Nausea And Vomiting Potassium Chloride (Klor-Con) 40 meq PO DAILYP PRN PRN Reason: K+ < 3.5 Promethazine HCl (Phenergan) 6.25 mg IV Q4-6HP PRN PRN Reason: Nausea And Vomiting Senna/Docusate Sodium (Senna Plus Tablet) 1 tab PO HS [facility] Sodium Chloride (Saline Flush) 10 ml IV Q8 [facility] Last Admin: 03/01/19 13:17 Dose: Not Given Documented by: Vancomycin HCl (Vancomycin Per Pharmacy) 1 order IV UD [facility]; Protocol Medical - PN: A/P - Time Spent With Patient Total time spent is greater than 50% in coordination of care (as documented) at patient's floor/unit and/or counseling patient: 25 - 35 minutes (1) Hyponatremia Status: Acute Assessment and plan: * Critical hyponatremia at 102. Improved to 133. * Alcohol withdrawal-clinically resolved. Managed as per [facility] protocol. Detox physician sign off. * Complicated staph aureus UTI-continue vancomycin. Renal ultrasound negative for renal abscess. * Low magnesium and K-continue aggressive IV and oral replacement as indicated. Potassium normalized * Acute alcoholic hepatitis with elevated LFTs. INR 1.3, discriminant function 18 * History of hypertension-continue JIMMY inhibitor * History of [id number] diabetes. Diabetic diet * Nephrolithiasis * Full code * prophylaxis -heparin held in light of low platelets, patient ambulating Plan * Transfer to medical floor * Continue vancomycin per pharmacy and de-escalate based on sensitivities * Restart ARB * Prior medical condition management home meds Current Visit: Yes Medical - PN: Qual - VTE Deep Vein Thrombosis/Pulmonary Embolism Present on Admission: No
[2019-03-01] MEDS: SENNOSIDES/DOCUSATE SODIUM 1 TAB TABLET PO SCH (20:43)
[2019-03-01] MEDS: MIRTAZAPINE 15 MG TABLET PO SCH (20:44)
[2019-03-02] MEDS: 0.9 % SODIUM CHLORIDE 10 ML SYRINGE IV SCH ×3 (05:09→20:23)
[2019-03-02 05:40] LABS: Hematocrit 30.7 % (41.0-55.0); Hemoglobin 10.5 g/dL (13.5-16.5); Mean Cell Volume 99.6 fL (80.0-100.0); Mean Corpuscular HGB Conc 34.1 g/dL (31.0-36.0); Platelet Count 119 K/mcL (140-440); RBC 3.08 M/mcL (4.50-5.90); Red Cell Distribution Width 13.9 % (11.5-14.5); WBC 5.8 K/mcL (4.5-11.0)
[2019-03-02 06:14] LABS: ALT/SGPT 50 U/l (0-40); AST/SGOT 95 U/l (0-37); Albumin 3.3 gm/dL (3.2-5.2); Albumin/Globulin Ratio 0.8 (1.0-2.3); Alkaline Phosphatase 130 U/L (39-117); Bilirubin,Direct 0.4 mg/dL (0.0-0.3); Blood Urea Nitrogen 12 mg/dl (6-20); Calcium 9.2 mg/dl (8.6-10.4); Carbon Dioxide 30 mmol/L (22-30); Chloride 93 mmol/L (96-108); Glomerular Filtration Rate 99; Glucose 121 mg/dL (70-105); Lactate Dehydrogenase 206 U/L (94-250); Phosphorous 4.3 mg/dL (2.7-4.5); Triglycerides 40 mg/dl (<150); Uric Acid 4.1 mg/dL (2.5-8.0)
[2019-03-02 06:32] LABS: Vancomycin,Random 7.6 ug/mL
[2019-03-02 08:06] LABS: Band Neutrophils % 1 % (0-10); Eosinophils % (Manual) 4 % (0-7); Lymphocytes % 28 % (15-49); Monocytes % (Manual) 9 % (1-12); Platelet Estimate DECREASED (NORMAL); Polychromasia FEW (NONE SEEN); RBC Morphology ABNORM (NORMAL); Reactive Lymphocytes 1 % (0-2); Segmented Neutrophils % 57 % (38-78)
[2019-03-02] MEDS ORDERED: VANCOMYCIN 1,500 MG in 0.9 % SODIUM CHLORIDE 500 ML IV SCH (09:00)
[2019-03-02] MEDS: MULTIVIT,THER IRON,CA,FA & MIN 1 TABLET PO SCH (09:48)
[2019-03-02] MEDS: LOSARTAN 50 MG TABLET PO SCH (09:48)
[2019-03-02] MEDS: CYANOCOBALAMIN (VITAMIN B-12) 500 MCG TABLET PO SCH (09:48)
[2019-03-02] MEDS: MAGNESIUM OXIDE 400 MG TABLET PO SCH ×3 (09:48→20:22)
[2019-03-02] MEDS: DOCUSATE SODIUM 100 MG CAPSULE PO SCH ×2 (09:49→20:22)
[2019-03-02] MEDS: FOLIC ACID 1 MG TABLET PO SCH (09:49)
[2019-03-02] MEDS: MUPIROCIN OINT 2% 22GM NARES SCH ×2 (09:50→20:22)
[2019-03-02] MEDS: MAGNESIUM SULFATE 2 GM/50 ML BAG IV PRN (10:14)
--- NOTE | 2019-03-02 12:05 | Internal Med Progress Note ---
Medical - PN: Subj Patient information: Note initiated : 03/02/19 at 12:02 pm Service Date, if different from initiated Date: [] Patient: Primitivo Krueger a 58 y/o M admitted on 02/26/19 for alcohol withdrawl. Chief Complaint: [] Interval history: Mr. Krueger is a 58 year old M with a history of alcoholism who resides at [facility] who presents to the ER with onset of severe nausea vomiting. Patient has a long-standing history of alcoholism and currently consumes 7-8 drinks of vodka. His last drink was 72 hours ago. He started experiencing significant nausea vomiting and presented with symptoms of weakness lightheadedness dizziness. Patient has had seizures in the past and felt like symptoms were similar prior to having seizures. Initial work-up in the ER was consistent with acute hepatitis with elevated bilirubin/LFTs and a critical sodium of 102. Subsequent nephrology and hospitalist service consulted for evaluation in light of impending seizure. At the time of evaluation patient is alert but tremulous lightheaded. He was able to endorse history as above. He appears intermittently confused. A detailed history could not be obtained except for review of medical charts and discussing with ER physician. 8-patient doing better. CIWA score around 5. Frequent sodium checks. Sodium rise slightly above goal. Nephrology on board. Current sodium 117. Continue treatment for alcohol withdrawal per protocol. No overnight fever chills or seizure episodes. No telemetry events. 8/-patient doing well. Alcohol withdrawal symptoms well controlled. Sodium rise at goal. Managed by nephrology. Denies headache/weakness. Ongoing physical therapy. Motivated to quit alcohol. Pyuria on UA growing staph aureus. Start vancomycin and de-escalate based on sensitivities. Continue close monitoring for withdrawal symptoms 8/-patient doing well. No overnight events. Improved sodium to 133. Denies cramps abdominal pain joint pain or rash. Electrolytes normalized. No further episode of withdrawals. No family at bedside. Anticipate discharge in 48 hours once clinically improved and sodium normalized 8/-patient doing well. No overnight events. No concerns per staff. No fever chills nausea vomiting. Sodium is 133. Electrolyte is normalized. Feeling a lot better. No significant psychomotor agitation. Anticipate discharge in 24 hours. - Constitutional Vitals: Vital Signs Temp Pulse Resp BP Pulse Ox 98.7 F 92 H 20 142/83 95 08/04/19 08:00 03/02/19 08:15 03/02/19 08:15 03/02/19 08:00 03/02/19 08:15 Period Temp Pulse Resp BP Sys/Miller Pulse Ox Last 24 Hr 98.1 F-98.8 F 88-96 12-20 130-159/75-95 93-97 Intake and Output 03/01/19 03/02/19 03/02/19 21:59 05:59 13:59 Intake Total 1140 680 50 Balance 1140 680 50 Weight 231 lb 8 oz 233 lb 6.4 oz Intake & Output: Intake & Output 03/01/19 03/02/19 03/02/19 21:59 05:59 13:59 Intake Total 1140 680 50 Balance 1140 680 50 Weight 231 lb 8 oz 233 lb 6.4 oz Intake: IV 50 Oral 540 680 GI Tube Flush 600 Other: Meal Sherbert Percent of Meal Consumed 100% Feeding Ability Independent Stool Size Moderate Stool Color Brown Stool Consistency Loose # Voids 4 General appearance: no acute distress Exam: Alert oriented Nonlabored breathing Minimal anxiety Nondistended abdomen Medical - PN: Obj Da - Labs CBC & Chem 7: 03/02/19 04:39 03/02/19 04:39 Labs: Abnormal Lab Results 03/02/19 03/02/19 03/01/19 04:39 04:39 08:02 RBC 3.08 L Hgb 10.5 L Hct 30.7 L MCH Plt Count 119 L Platelet Estimate Decreased A RBC Morphology Abnorm A Polychromasia Few A Sodium Potassium Chloride 93 L Glucose 121 H Calcium Phosphorus Magnesium 1.1 L Total Bilirubin Direct Bilirubin 0.4 H GGT 243 H AST 95 H ALT 50 H Alkaline Phosphatase 130 H Globulin 4.0 H Albumin/Globulin Ratio 0.8 L Vancomycin Trough 20.4 H* 03/01/19 03/01/19 02/28/19 05:05 05:05 15:02 RBC 3.26 L Hgb 11.0 L Hct 32.6 L MCH Plt Count 107 L Platelet Estimate Decreased A RBC Morphology Polychromasia Sodium 128 L Potassium Chloride 93 L Glucose 116 H Calcium Phosphorus Magnesium 1.4 L Total Bilirubin 1.1 H Direct Bilirubin 0.5 H GGT 275 H AST 102 H ALT 47 H Alkaline Phosphatase 124 H Globulin 4.0 H Albumin/Globulin Ratio 0.9 L Vancomycin Trough 08/02/19 08/02/19 08/01/19 04:09 04:08 22:00 RBC 3.12 L Hgb 10.7 L Hct 30.8 L MCH 34.2 H Plt Count 100 L Platelet Estimate Decreased A RBC Morphology Polychromasia Sodium 128 L 124 L Potassium 3.2 L Chloride 87 L 83 L Glucose 118 H 140 H Calcium 8.0 L 8.3 L Phosphorus 2.1 L 1.6 L Magnesium Total Bilirubin Direct Bilirubin GGT AST ALT Alkaline Phosphatase Globulin Albumin/Globulin Ratio Vancomycin Trough 02/27/19 02/27/19 20:15 13:50 RBC Hgb Hct MCH Plt Count Platelet Estimate RBC Morphology Polychromasia Sodium 123 L 121 L Potassium Chloride Glucose Calcium Phosphorus Magnesium Total Bilirubin Direct Bilirubin GGT AST ALT Alkaline Phosphatase Globulin Albumin/Globulin Ratio Vancomycin Trough Meds: Medications Acetaminophen (Tylenol) 650 mg PO Q4-6HP PRN PRN Reason: PAIN/FEVER > 101 Docusate Sodium (Colace) 100 mg PO BID [facility] Last Admin: 03/02/19 09:49 Dose: Not Given Documented by: Folic Acid (Folic Acid) 1 mg PO DAILY [facility] Last Admin: 03/02/19 09:49 Dose: 1 mg Documented by: Guaifenesin/Codeine Phosphate (Robitussin Ac) 10 ml PO Q4HP PRN PRN Reason: Cough Potassium Chloride 40 meq/ (Dextrose) 520 mls @ 130 mls/hr IV UD PRN PRN Reason: K+ = or < 3.5 Magnesium Sulfate (Magnesium Sulfate) 2 gm in 50 mls @ 50 mls/hr IV UD PRN PRN Reason: MG = or < 1.7 Last Infusion: 03/02/19 11:15 Dose: Infused Documented by: Acetaminophen (Ofirmev) 1,000 mg in 100 mls @ 200 mls/hr IV Q6HP PRN PRN Reason: PAIN/FEVER > 101 Vancomycin HCl 1,500 mg/ (Sodium Chloride) 500 mls @ 333.3 mls/hr IV Q24H [facility] Last Admin: 03/02/19 11:18 Dose: 333.3 mls/hr Documented by: Iron Carb/Multivit/Dare/Folic Acid (Multivitamin W/Minerals) 1 tab PO DAILY [facility] Last Admin: 03/02/19 09:48 Dose: 1 tab Documented by: Lorazepam (Ativan) 2 mg PO Q2HP PRN PRN Reason: CIWA-A >6 or HR >100 Losartan Potassium (Cozaar) 50 mg PO DAILY [facility] Last Admin: 03/02/19 09:48 Dose: 50 mg Documented by: Magnesium Oxide (Magnesium Oxide) 400 mg PO TID [facility] Last Admin: 03/02/19 09:48 Dose: 400 mg Documented by: Mirtazapine (Remeron) [address] [facility] Last Admin: 03/01/19 20:44 Dose: 15 mg Documented by: Mupirocin (Bactroban Oint 2%) 1 dose NARES BID [facility] Last Admin: 03/02/19 09:50 Dose: 1 dose Documented by: Ondansetron HCl (Zofran) 4 mg IV Q4-6HP PRN PRN Reason: Nausea And Vomiting Potassium Chloride (Klor-Con) 40 meq PO DAILYP PRN PRN Reason: K+ < 3.5 Promethazine HCl (Phenergan) 6.25 mg IV Q4-6HP PRN PRN Reason: Nausea And Vomiting Senna/Docusate Sodium (Senna Plus Tablet) [address] [facility] Last Admin: 03/01/19 20:43 Dose: 1 tab Documented by: Sodium Chloride (Saline Flush) 10 ml IV Q8 [facility] Last Admin: 03/02/19 05:09 Dose: Not Given Documented by: Vancomycin HCl (Vancomycin Per Pharmacy) 1 [place] [facility] Protocol Medical - PN: A/P - Time Spent With Patient Total time spent is greater than 50% in coordination of care (as documented) at patient's floor/unit and/or counseling patient: 15 - 24 minutes (1) Hyponatremia Status: Acute Assessment and plan: * Critical hyponatremia -secondary to alcoholism. Clinically resolved. Sodium 133. * Severe alcohol withdrawal with DTs. Patient clinically improved now off benzodiazepine. Initially managed on CIWA protocol. Detox physician signed off. Patient will follow-up with rehab detox clinic as outpatient * Complicated Staph aureus UTI-c switch to oral antibiotic. Renal ultrasound negative for renal abscess. Repeat UA in 24 hours * Low magnesium and K-continue aggressive IV and oral replacement as indicated. Normalized * Acute alcoholic hepatitis with elevated LFTs. INR 1.3, discriminant function 18 * History of hypertension-continue JIMMY inhibitor * History of [id number] diabetes. Diabetic diet * Nephrolithiasis * Full code * prophylaxis -heparin held in light of low platelets, patient ambulating Plan * Transfer to medical floor * Switch to oral Bactrim * Repeat UA * Prior medical condition management home meds Current Visit: Yes Medical - PN: Qual - VTE Deep Vein Thrombosis/Pulmonary Embolism Present on Admission: No
[2019-03-02] MEDS: SULFAMETHOXAZOLE/TRIMETHOPRIM 1 TABLET PO SCH ×2 (12:42→20:21)
[2019-03-02] MEDS: MIRTAZAPINE 15 MG TABLET PO SCH (20:21)
[2019-03-02] MEDS: SENNOSIDES/DOCUSATE SODIUM 1 TAB TABLET PO SCH (20:22)
[2019-03-03] MEDS: 0.9 % SODIUM CHLORIDE 10 ML SYRINGE IV SCH ×2 (04:46→12:33)
[2019-03-03 05:51] LABS: Hematocrit 31.6 % (41.0-55.0); Hemoglobin 10.6 g/dL (13.5-16.5); Mean Corpuscular HGB Conc 33.6 g/dL (31.0-36.0); Platelet Count 143 K/mcL (140-440); RBC 3.16 M/mcL (4.50-5.90); Red Cell Distribution Width 14.1 % (11.5-14.5); WBC 4.9 K/mcL (4.5-11.0)
[2019-03-03 06:16] LABS: ALT/SGPT 65 U/l (0-40); AST/SGOT 114 U/l (0-37); Albumin 3.2 gm/dL (3.2-5.2); Albumin/Globulin Ratio 0.8 (1.0-2.3); Alkaline Phosphatase 107 U/L (39-117); Bilirubin,Direct 0.4 mg/dL (0.0-0.3); Bilirubin,Total 0.8 mg/dL (0.0-1.0); Blood Urea Nitrogen 14 mg/dl (6-20); Calcium 9.2 mg/dl (8.6-10.4); Carbon Dioxide 28 mmol/L (22-30); Chloride 95 mmol/L (96-108); Glomerular Filtration Rate 94; Glucose 121 mg/dL (70-105); Lactate Dehydrogenase 201 U/L (94-250); Phosphorous 5.6 mg/dL (2.7-4.5); Triglycerides 47 mg/dl (<150); Uric Acid 4.1 mg/dL (2.5-8.0)
[2019-03-03 06:39] LABS: Eosinophils % (Manual) 4 % (0-7); Lymphocytes % 21 % (15-49); Monocytes % (Manual) 2 % (1-12); Platelet Estimate NORMAL (NORMAL); RBC Morphology NORMAL (NORMAL); Segmented Neutrophils % 73 % (38-78)
[2019-03-03] MEDS: MAGNESIUM SULFATE 2 GM/50 ML BAG IV PRN (08:00)
[2019-03-03] MEDS: DOCUSATE SODIUM 100 MG CAPSULE PO SCH (09:31)
[2019-03-03] MEDS: FOLIC ACID 1 MG TABLET PO SCH (10:07)
[2019-03-03] MEDS: MAGNESIUM OXIDE 400 MG TABLET PO SCH (10:07)
[2019-03-03] MEDS: SULFAMETHOXAZOLE/TRIMETHOPRIM 1 TABLET PO SCH (10:07)
[2019-03-03] MEDS: MULTIVIT,THER IRON,CA,FA & MIN 1 TABLET PO SCH (10:07)
[2019-03-03] MEDS: MUPIROCIN OINT 2% 22GM NARES SCH (10:08)
--- NOTE | 2019-03-03 12:24 | Discharge Summary ---
Medical - DS: Prov Patient information: Note initiated : 03/03/19 at 12:22 pm Service Date, if different from initiated Date: [] Patient: Primitivo Krueger 58 y/o M admitted on 02/26/19 for alcohol withdrawl. Chief Complaint: [] Date of admission: 02/26/19 22:22 Discharge date: 03/03/19 Primary care physician: Haja Roper Consults: 02/26/19 Consult to Physician [CONS] Stat Comment: Consulting Provider: Omar Vera Reason For Exam: Physician to Consult 02/26/19 19:30 Consult to Physician [CONS] Routine Comment: called from ER Consulting Provider: Fouzia Adhikari Reason For Exam: Physician to Consult 02/27/19 07:54 Consult to Physician [CONS] Routine Comment: Consulting Provider: Barrett Smith Reason For Exam: Physician to Consult Medical - DS: Meds - Discharge Medications Prescriptions: Sulfamethoxazole/Trimethoprim [Bactrim Ds] 1 tab PO BID #10 tab Active and Home Medications: Home Medications metFORMIN HCL [Fortamet] 1,000 mg PO BID 02/26/19 [History Confirmed 02/27/19 Last Taken Unknown] Albuterol Sulfate [Ventolin] 2 puff INH QIDP PRN 02/27/19 [History Confirmed 02/27/19 Last Taken Unknown] Losartan Potassium 50 mg PO DAILY 02/27/19 [History Confirmed 02/27/19 Last Taken Unknown] Sulfamethoxazole/Trimethoprim [Bactrim Ds] 1 tab PO BID #10 tab 03/03/19 [Rx Last Taken Unknown] Medical - DS: Hosp Hospital course: Discharge diagnosis * Critical hyponatremia -secondary to alcoholism. Clinically resolved. * Severe alcohol withdrawal with DTs. Clinically resolved. Off benzodiazepine. Advised to refrain from alcohol use. Continue follow-up with detox clinic as outpatient * Complicated Staph aureus UTI-continue additional 5 days oral Bactrim. Renal ultrasound negative for renal abscess. * Low magnesium and K-continue clinically resolved with aggressive replacement. * Acute alcoholic hepatitis with elevated LFTs. INR 1.3, discriminant function 18. Advised to refrain from alcohol. Continue outpatient follow-up with alcohol detoxification clinic * History of hypertension-continue JIMMY inhibitor * History of [id number] diabetes. Continue diabetic diet * Full code Brief hospital course Mr. Krueger is a 58 year old M with a history of alcoholism who resides at [facility] who presents to the ER with onset of severe nausea vomiting. Patient has a long-standing history of alcoholism and currently consumes 7-8 drinks of vodka. His last drink was 72 hours ago. He started experiencing significant nausea vomiting and presented with symptoms of weakness lightheadedness dizziness. Patient has had seizures in the past and felt like symptoms were similar prior to having seizures. Initial work-up in the ER was consistent with acute hepatitis with elevated bilirubin/LFTs and a critical sodium of 102. Subsequent nephrology and hospitalist service consulted for evaluation in light of impending seizure. At the time of evaluation patient is alert but tremulous lightheaded. He was able to endorse history as above. He appears intermittently confused. A detailed history could not be obtained except for review of medical charts and discussing with ER physician. 8/-patient doing better. CIWA score around 5. Frequent sodium checks. Sodium rise slightly above goal. Nephrology on board. Current sodium 117. Continue treatment for alcohol withdrawal per protocol. No overnight fever chills or seizure episodes. No telemetry events. 8/2-patient doing well. Alcohol withdrawal symptoms well controlled. Sodium rise at goal. Managed by nephrology. Denies headache/weakness. Ongoing physical therapy. Motivated to quit alcohol. Pyuria on UA growing staph aureus. Start vancomycin and de-escalate based on sensitivities. Continue close monitoring for withdrawal symptoms 8/3-patient doing well. No overnight events. Improved sodium to 133. Denies cramps abdominal pain joint pain or rash. Electrolytes normalized. No further episode of withdrawals. No family at bedside. Anticipate discharge in 48 hours once clinically improved and sodium normalized 8/4-patient doing well. No overnight events. No concerns per staff. No fever chills nausea vomiting. Sodium is 133. Electrolyte is normalized. Feeling a lot better. No significant psychomotor agitation. Anticipate discharge in 24 hours. 8/5-doing well. Discharging home. Sodium normalized. Continue additional 5 days of Bactrim for UTI. Discharge diagnosis: . - Time Spent with Patient Total time spent providing and/or coordinating discharge services: Greater than 30 minutes Medical - DS: Exam - Constitutional Vitals: Vital Signs Temp Pulse Resp BP BP BP Pulse Ox 03/03/19 08:00 18 92 03/03/19 07:47 98.5 F 87 18 90/58 88 L 03/03/19 04:00 98.4 F 91 H 16 111/66 91 03/03/19 00:00 98.2 F 86 12 131/81 93 03/02/19 19:03 97.8 F 86 12 126/78 91 03/02/19 16:05 98.1 F 86 18 138/81 96 Intake and Output 03/02/19 03/03/19 03/03/19 21:59 05:59 13:59 Intake Total 1200 400 Balance 1200 400 Intake: Oral 1200 400 Other: Meal mixed berries Percent of Meal Consumed 100% Feeding Ability Independent Urine Appearance Clear Urine Color Dark Yellow Urine Odor Normal # Voids 1 6 Weight 232 lb Medical - DS: Data Labs on day of discharge: Labs from last 24 hours 03/03/19 03/03/19 04:36 04:36 WBC 4.9 RBC 3.16 L Hgb 10.6 L Hct 31.6 L MCV 100.0 MCH 33.6 MCHC 33.6 RDW 14.1 Plt Count 143 MPV 8.0 Total Counted 100 Seg Neutrophils % 73 Band Neutrophils % Not Reportable Lymphocytes % 21 Monocytes % (Manual) 2 Eosinophils % (Manual) 4 Platelet Estimate Normal RBC Morphology Normal Sodium 135 Potassium 4.2 Chloride 95 L Carbon Dioxide 28 Anion Gap 12.0 BUN 14 Creatinine 0.9 GFR Calculation 94 Glucose 121 H Uric Acid 4.1 Calcium 9.2 Phosphorus 5.6 H Magnesium 1.2 L Total Bilirubin 0.8 Direct Bilirubin 0.4 H GGT 238 H AST 114 H ALT 65 H Alkaline Phosphatase 107 Lactate Dehydrogenase 201 Total Protein 7.2 Albumin 3.2 Globulin 4.0 H Albumin/Globulin Ratio 0.8 L Triglycerides 47 Medical - DS: A/P - Patient/Caregiver Discharge Instructions Activity: as per physical therapy Diet: Regular Diet Additional Instructions: Refrain from alcohol use Continue antibiotic for additional 5 days Return to ER if fever chills, low blood pressure. Prescriptions: Sulfamethoxazole/Trimethoprim [Bactrim Ds] 1 tab PO BID #10 tab - Problem Maintenance (1) Hyponatremia Status: Acute - Follow up Plan Follow up with: Fouzia Adhikari DO [Physician] - 03/03/19 3:45 pm (Please bring all of your prescriptions and their bottles to this appointment.) Haja Roper ARNP [Primary Care Provider] - 03/06/19 2:30 pm Disposition: Home, Self-Care Prognosis: Serious Rehab Potential: Fair I certify that the patient requires SNF services: No Overall status at discharge: patient is progressing back to baseline Medical - DS: Qual - VTE Deep Vein Thrombosis/Pulmonary Embolism Present on Admission: No
[2019-03-03] MEDS: LOSARTAN 50 MG TABLET PO SCH (12:27)
== END 2019-03-03 13:15 | disposition home or self-care (01) | DRG 641 ==
LOC: ED 19:03 → ICU 22:22 → MEDSUR 02-28 13:53
PROVIDERS: ADMIT Internal Medicine; ATTEND Internal Medicine

== ENCOUNTER 2019-12-02 16:18 | Inpatient (IN) ==
--- NOTE | 2019-12-02 16:22 | Internal Med History&Physical ---
Medical - H&P: [facility] Patient information: Note initiated : 12/02/19 at 4:20 pm Service Date, if different from initiated Date: [] Patient: Primitivo Krueger a 59 y/o M admitted on for infected Foot, surgery . Chief Complaint: [] History of present illness: Mr. Krueger is a 59 year old M Presents to infectious disease clinic and referred by meal miller for cellulitis left foot. Work-up included imaging showed an abscess and osteomyelitis. Discussed case with Dr. Blue for direct admission. Patient will be started on Zosyn and will receive I&D by podiatry, Dr. Phan. Patient is at this point for over a year. Had a lot of swelling and redness and at times. The swelling is actually improved a little bit lately. And is actually started look better however we open up the dressing this morning the small wound on his lateral aspect was more red oozing a little bit of blood. Dr. Phan saw him first this morning then referred him to Dr. Blue. Further imaging was obtained, MRI which showed abscess and osteomyelitis. denies any fever chills Review of Systems: Pertinent positives as above. Denies headache/fever/chills/nausea/vomiting/chest or abdominal pain/cough/dyspnea/diarrhea. Remaining 10 point review of system reviewed negative. Medical - H&P: H Medical history: Medical History (Last Reviewed 12/02/19 @ 08:24 by Dolores Pascual RN) Depression (Chronic) Fatigue (Chronic) Hemorrhoids (Chronic) Recurrent kidney stones (Chronic) Hyperlipidemia (Chronic) Diabetes mellitus type II, uncontrolled (Chronic) Liver function test abnormality (Chronic) Cirrhosis, alcoholic (Chronic) Alcohol withdrawal seizure (Chronic) Alcohol abuse, episodic (Chronic) Hyponatremia (Chronic) Cholelithiasis (Chronic) Enlarged gallbladder (Chronic) Gout of ankle (Chronic) Foot pain, left (Chronic) Displaced fracture of medial cuneiform of left foot, initial encounter for closed fracture (Chronic) Nephrolithiasis (Chronic) Seizures (Chronic) Kidney problem (Chronic) Hypertension (Chronic) Acid reflux (Chronic) Asthma (Chronic) Diabetes type 2, controlled (Inactive) Past Surgical History (Last Reviewed 12/02/19 @ 08:24 by Dolores Pascual RN) Kidney calculus (Acute) Family History (Last Reviewed 12/02/19 @ 08:24 by Dolores Pascual RN) Father Alcohol abuse Cancer Mother Alcohol abuse Seizures Cancer Grandmother Liver problem Sister Cancer Social History (Last Updated 12/02/19 @ 10:12 by Trenton Blue MD) Quit smoking Denies any alcohol at all in the last few months. No drug use. Is at home with family Medical - H&P: Meds Home Medications Medication Instructions Recorded Confirmed Type Albuterol Sulfate [Ventolin] 2 puff INH QIDP PRN 02/27/19 12/02/19 History Omeprazole [PriLOSEC] 20 mg PO PRN PRN 05/27/19 12/02/19 History losartan 50 mg tablet 50 mg PO DAILY #30 tab 08/13/19 12/02/19 Rx bupropion HCl 75 mg tablet 75 mg PO QAM #30 tab 09/22/19 12/02/19 Rx glimepiride 2 mg tablet See Rx Instructions .ROUTE 10/20/19 12/02/19 Rx .COMPLEX #60 unknown measurement unit code: tablet blood sugar diagnostic See Rx Instructions .ROUTE 10/30/19 12/02/19 Rx .MEDSUPPLY #100 each metformin 500 mg tablet,extended See Rx Instructions .ROUTE 11/10/19 12/02/19 Rx release 24 hr .COMPLEX #120 tablet mirtazapine 15 mg tablet See Rx Instructions .ROUTE 11/11/19 12/02/19 Rx .COMPLEX #30 unknown measurement unit code: tablet indomethacin 25 mg capsule See Rx Instructions .ROUTE 11/17/19 12/02/19 Rx .COMPLEX #90 capsule gabapentin 300 mg capsule See Rx Instructions .ROUTE 11/24/19 12/02/19 Rx .COMPLEX #60 unknown measurement unit code: capsule naltrexone 50 mg tablet See Rx Instructions .ROUTE 11/24/19 12/02/19 Rx .COMPLEX #30 unknown measurement unit code: tablet Allergies Allergy/AdvReac Type Severity Reaction Status Date / Time No Known Drug Allergies Allergy Verified 12/02/19 08:24 Medical - H&P: Exam - Constitutional Exam: General: Alert, Awake, No acute Distress, obese Eyes/N/T: EOMI, PERRL, Head/Neck: neck supple, normocephalic atraumatic CV: RRR, No murmurs, normal s1/s2 Pulm: Clear b/l, no wheezing/rhonchi/rales Abd: soft, nontender, +BS x4 Ext: no clubbing/cyanosis, 1+ b/l LE edema, Left foot in dressing Neuro: Alert, no focal deficits, moves all extremities, CN 2-12 grossly intact, symmetrical strength b/l upper/lower, Skin: warm/dry Medical - H&P: A/P - Narrative A/P Narrative: A: *Left foot cellitis/osteomyelitis/abscess: *DM: A1c 9.3 in September, on metformin and glimepiride *HTN: *GERD: *Asthma: *Obesity: *Depression: *hyperkalemia,mild: *h/o Alcohol use: no alcohol last several months *History of hyponatremia usually related to alcohol P: -Zosyn, pending wound cultures -Dr. Phan for podiatry -Dr. Blue following -Continue metformin/glimepiride/SSI -hold ARB for mild hyperkalemia -Wound care - -ppx: Heparin full code
[2019-12-02] MEDS ORDERED: DEXTROSE 50% 50 ML VIAL IV PRN (16:23)
[2019-12-02] MEDS ORDERED: SENNOSIDES 1 TABLET PO PRN (16:23)
[2019-12-02] MEDS ORDERED: POTASSIUM CHLORIDE 20 MEQ TABLET PO PRN ×2 (16:23)
[2019-12-02] MEDS ORDERED: ONDANSETRON 4 MG/2 ML VIAL IV PRN (16:23)
[2019-12-02] MEDS ORDERED: POTASSIUM CHLORIDE 40 MEQ in DEXTROSE 5% IN WATER 500 ML IV PRN (16:23)
[2019-12-02] MEDS ORDERED: MAGNESIUM SULFATE 2 GM/50 ML BAG IV PRN (16:23)
[2019-12-02] MEDS ORDERED: IPRATROPIUM/ALBUTEROL 3 ML AMPUL.NEB NEB PRN (16:23)
[2019-12-02] MEDS ORDERED: DEXTROSE 31 GM ORAL.SUSP PO PRN (16:23)
[2019-12-02] MEDS ORDERED: HYDROcodone/APAP 5/325MG TABLET PO PRN (16:23)
[2019-12-02] MEDS ORDERED: POLYETHYLENE GLYCOL 3350 17 GM PACKET PO PRN (16:23)
[2019-12-02] MEDS ORDERED: LACTULOSE 20 GM/30 ML ORAL.SOL PO PRN (16:23)
[2019-12-02] MEDS: INSULIN LISPRO 1 UNIT/0.01 ML UNIT SQ SCH ×2 (18:11→22:41)
[2019-12-02] MEDS: PIPERACILLIN SODIUM/TAZOBACTAM 3.375 GM in DEXTROSE 5% IN WATER 50 ML IV SCH ×2 (19:02→23:54)
[2019-12-02] MEDS: DOCUSATE SODIUM 100 MG CAPSULE PO SCH (22:40)
[2019-12-02] MEDS: HEPARIN 5,000 UNIT/ML VIAL SQ SCH (22:40)
[2019-12-02] MEDS: THIAMINE 100 MG TABLET PO SCH (22:41)
[2019-12-02] MEDS: 0.9 % SODIUM CHLORIDE 10 ML SYRINGE IV SCH (22:41)
[2019-12-02] MEDS: FAMOTIDINE 20 MG TABLET PO SCH (22:41)
[2019-12-03] MEDS: 0.9 % SODIUM CHLORIDE 10 ML SYRINGE IV SCH ×3 (05:49→21:42)
[2019-12-03] MEDS: PIPERACILLIN SODIUM/TAZOBACTAM 3.375 GM in DEXTROSE 5% IN WATER 50 ML IV SCH (05:49)
[2019-12-03 06:16] LABS: Basophils # (Auto) 0.08 K/mcL (0.00-0.30); Eosinophils # (Auto) 0.35 K/mcL (0.00-0.70); Eosinophils % (Auto) 4.3 % (0.0-7.0); Hematocrit 31.8 % (40.1-51.0); Hemoglobin 10.7 g/dL (13.7-17.5); Lymphocytes # (Auto) 3.11 K/mcL (1.50-4.80); Mean Cell Volume 88.1 fL (80.0-100.0); Mean Corpuscular HGB Conc 33.6 g/dL (31.0-36.0); Mean Platelet Volume 9.8 fL (7.4-10.4); Monocytes # (Auto) 0.71 K/mcL (0.10-0.90); Monocytes % (Auto) 8.7 % (1.0-12.0); Platelet Count 206 K/mcL (140-440); RBC 3.61 M/mcL (4.63-6.08); Red Cell Distribution Width 14.2 % (11.5-14.5); WBC 8.2 K/mcL (4.50-11.00)
[2019-12-03 06:40] LABS: ALT/SGPT 10 U/l (0-40); AST/SGOT 18 U/l (0-37); Albumin 2.9 gm/dL (3.2-5.2); Albumin/Globulin Ratio 0.5 (1.0-2.3); Alkaline Phosphatase 92 U/L (39-117); Bilirubin,Direct < 0.2 mg/dL (0.0-0.3); Bilirubin,Total 0.4 mg/dL (0.0-1.0); Blood Urea Nitrogen 23 mg/dl (6-20); Calcium 8.6 mg/dl (8.6-10.4); Carbon Dioxide 22 mmol/L (22-30); Chloride 99 mmol/L (96-108); Globulin 5.6 gm/dL (2.2-3.7); Glomerular Filtration Rate 60; Glucose 94 mg/dL (70-105); Lactate Dehydrogenase 180 U/L (94-250); Phosphorous 5.3 mg/dL (2.7-4.5); Triglycerides 153 mg/dl (<150); Uric Acid 7.8 mg/dL (2.5-8.0)
[2019-12-03 06:48] LABS: INR 1.1 (0.9-1.1); Prothrombin Time 14.5 sec (11.9-14.5)
[2019-12-03] MEDS: INSULIN LISPRO 1 UNIT/0.01 ML UNIT SQ SCH ×4 (07:18→21:34)
[2019-12-03] MEDS ORDERED: 0.9 % SODIUM CHLORIDE 500 ML IV ONE (07:35)
[2019-12-03] MEDS ORDERED: MAGNESIUM SULFATE 2 GM/50 ML BAG IV ONE (07:36)
--- NOTE | 2019-12-03 07:37 | Internal Med Progress Note ---
Medical - PN: Subj Patient information: Note initiated : 12/03/19 at 7:34 am Service Date, if different from initiated Date: [] Patient: Primitivo Krueger a 59 y/o M admitted on 12/02/19 for infected Foot, surgery . Chief Complaint: [] Interval history: Mr. Krueger is a 59 year old M Presents to infectious disease clinic and referred by legal secretary receptionist for cellulitis left foot. Work-up included imaging showed an abscess and osteomyelitis. Discussed case with Dr. Blue for direct admission. Patient will be started on Zosyn and will receive I&D by podiatry, Dr. Phan. Patient is at this point for over a year. Had a lot of swelling and redness and at times. The swelling is actually improved a little bit lately. And is actually started look better however we open up the dressing this morning the small wound on his lateral aspect was more red oozing a little bit of blood. Dr. Phan saw him first this morning then referred him to Dr. Blue. Further imaging was obtained, MRI which showed abscess and osteomyelitis. denies any fever chills 5/6 Doing well no overnight events or new complaints. N.p.o. waiting for surgical evaluation. Review of Systems: denies headache/fever/chills/nausea/vomiting/chest or abdominal pain/cough/dyspnea/diarrhea. Otherwise see above. - Constitutional Vitals: Vital Signs Temp Pulse Resp BP Pulse Ox 98.4 F 96 H 18 139/87 90 12/03/19 07:23 12/03/19 07:23 12/03/19 07:23 12/03/19 07:23 12/03/19 07:23 Period Temp Pulse Resp BP Sys/Miller Pulse Ox Last 24 Hr 98.0 F-98.7 F 95-103 12-20 124-150/70-90 90-94 Intake and Output 12/02/19 12/03/19 12/03/19 21:59 05:59 13:59 Intake Total 50 590 Output Total 600 Balance 50 -10 Weight 132.903 kg Intake & Output: Intake & Output 12/02/19 12/03/19 12/03/19 21:59 05:59 13:59 Intake Total 50 590 Output Total 600 Balance 50 -10 Weight 132.903 kg Intake: IV 50 50 Zosyn 3.375 gm In Dextrose 5% 50 50 in Water 50 ml @ 100 mls/hr IV Q6H [facility] Rx#:[id number] Oral 540 Output: Void Amount 600 Other: Meal Dinner Percent of Meal Consumed 100% Urine Appearance Clear Urine Color Dark Yellow Urine Odor Strong Exam: General: Alert, Awake, No acute Distress, obese Eyes/N/T: EOMI, Head/Neck: neck supple, CV: RRR, No murmurs, Pulm: Clear b/l, no wheezing/rhonchi/rales Abd: soft, nontender, +BS x4 Ext: no clubbing/cyanosis, 1+ b/l LE edema, Left foot in dressing bloody drainage Neuro: Alert, no focal deficits, moves all extremities, Skin: warm/dry Medical - PN: Obj Da - Labs CBC & Chem 7: 12/03/19 05:13 12/03/19 05:13 Labs: Abnormal Lab Results 12/03/19 12/03/19 05:13 05:13 RBC 3.61 L Hgb 10.7 L Hct 31.8 L Sodium 131 L BUN 23 H Creatinine 1.3 H Phosphorus 5.3 H Magnesium 1.4 L Total Protein 8.5 H Albumin 2.9 L Globulin 5.6 H Albumin/Globulin Ratio 0.5 L Triglycerides 153 H Meds: Medications Acetaminophen (Tylenol) 650 mg PO Q6HP PRN PRN Reason: PAIN/FEVER > 101 Hydrocodone Bitart/Acetaminophen ([place] 5/325mg) 1 tab PO Q4HP PRN PRN Reason: PAIN LEVEL 3-6 Albuterol/Ipratropium (Duoneb) 3 ml NEB Q4HP PRN PRN Reason: Shortness Of Breath Dextrose (Dextrose 50%) 0 ml IV UD PRN PRN Reason: Hypoglycemia Diagnostic Test (Pha) (Accu-Chek) 1 each FS ACHS [facility] Last Admin: 12/03/19 07:16 Dose: 1 each Documented by: Docusate Sodium (Colace) 100 mg PO BID [facility] Last Admin: 12/02/19 22:40 Dose: Not Given Documented by: Famotidine (Pepcid) 20 mg PO BID [facility] Last Admin: 12/02/19 22:41 Dose: 20 mg Documented by: Glucose (Insta-Glucose) 15 gm PO PRN PRN PRN Reason: Hypoglycemia Heparin Sodium (Porcine) (Heparin) 5,000 unit SQ Q12 [facility] Last Admin: 12/02/19 22:40 Dose: 5,000 unit Documented by: Potassium Chloride 40 meq/ (Dextrose) 520 mls @ 130 mls/hr IV UD PRN PRN Reason: Potassium < 3 Magnesium Sulfate (Magnesium Sulfate) 2 gm in 50 mls @ 50 mls/hr IV UD PRN PRN Reason: Magnesium </= 1.6 Piperacillin Sod/Tazobactam (Sod 3.375 gm/ Dextrose) 50 mls @ 100 mls/hr IV Q6H [facility]; Protocol Last Admin: 12/03/19 05:49 Dose: 100 mls/hr Documented by: Insulin Human Lispro (Humalog) 0 unit SQ ACHS [facility]; Protocol Last Admin: 12/03/19 07:18 Dose: Not Given Documented by: Lactulose (Cephulac) 20 gm PO DAILYP PRN PRN Reason: Constipation Ondansetron HCl (Zofran) 4 mg IV Q4HP PRN PRN Reason: Nausea And Vomiting Polyethylene Glycol (Miralax) 17 gm PO DAILYP PRN PRN Reason: Constipation Potassium Chloride (Kdur) 40 meq PO UD PRN PRN Reason: Potssium is 3-3.5 Potassium Chloride (Kdur) 40 meq PO UD PRN PRN Reason: Potassium < 3 Senna (Senokot) 2 tab PO DAILYP PRN PRN Reason: Constipation Sodium Chloride (Saline Flush) 10 ml IV Q8 [facility] Last Admin: 12/03/19 05:49 Dose: 10 ml Documented by: Thiamine HCl (Vitamin B1) 100 mg PO HS [facility] Last Admin: 12/02/19 22:41 Dose: 100 mg Documented by: Medical - PN: A/P - Time Spent With Patient Total time spent is greater than 50% in coordination of care (as documented) at patient's floor/unit and/or counseling patient: - Narrative A/P Narrative: A: *Left foot cellitis/osteomyelitis/abscess: *DM: A1c 9.3 in September, on metformin and glimepiride *HTN: *GERD: *Asthma: *Obesity: *Depression: *hyperkalemia,mild: *h/o Alcohol use: no alcohol last several months *History of Hyponatremia usually related to alcohol *Hypomag: P: -NPO until determined if procedure today -IVF -Zosyn, pending wound cultures -Dr. Phan for podiatry -Dr. Blue following -mag replace -Continue metformin/glimepiride/SSI -hold ARB for mild hyperkalemia -Wound care -pt/ot -ppx: Heparin full code
[2019-12-03] MEDS ORDERED: 0.9 % SODIUM CHLORIDE 1,000 ML IV SCH (07:45)
--- NOTE | 2019-12-03 09:58 | Orthopedic Consult Note ---
History of Present Illness - [facility] Patient information: Note initiated : 12/03/19 at 9:55 am Service Date, if different from initiated Date: [] Patient: Primitivo Krueger 59 y/o M admitted on 12/02/19 for infected Foot, surgery . 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 He has been treated outpatient and has continued with infection. He has a history of uncontrolled diabetes and morbid obesity. His left foot has a rocker-bottom configuration and is not stable. This has led to ulceration and infection. Review of Systems Constitutional: as per HPI Past History Past medical history: Asthma DEPRESSION AODM Hyperlipidemia KIDNEY STONES Type II Diabetes Hypertension Past surgical history: KIDNEY STONES Past family history: Cancer Mother, Father Past social history: Social History Never smoker Medications and Allergies Home Medications Medication Instructions Recorded Confirmed Type Albuterol Sulfate [Ventolin] 2 puff INH QIDP PRN 02/27/19 12/02/19 History Omeprazole [PriLOSEC] 20 mg PO PRN PRN 05/27/19 12/02/19 History losartan 50 mg tablet 50 mg PO DAILY #30 tab 08/13/19 12/02/19 Rx bupropion HCl 75 mg tablet 75 mg PO QAM #30 tab 09/22/19 12/02/19 Rx blood sugar diagnostic See Rx Instructions .ROUTE 10/30/19 12/02/19 Rx .MEDSUPPLY #100 each Gabapentin [Neurontin] 1 cap PO BID 12/02/19 12/02/19 History Glimepiride 2 tab PO DAILY 12/02/19 12/02/19 History Indomethacin 1 cap PO DAILY 12/02/19 12/02/19 History Levothyroxine Sodium [Synthroid] 100 mcg PO 1HRACB 12/02/19 12/02/19 History Mirtazapine [Remeron] 0.5 tab PO HS 12/02/19 12/02/19 History Naltrexone HCl 1 tab PO DAILY 12/02/19 12/02/19 History metFORMIN HCL [Glucophage Xr] 2 tab PO BID 12/02/19 12/02/19 History Allergies Allergy/AdvReac Type Severity Reaction Status Date / Time No Known Drug Allergies Allergy Verified 12/02/19 08:24 Physical Examination - Ankle & Foot left Ankle appearance: other (Wound #1 Left Midfoot is an acute Alex Grade 2 Diabetic Ulcer and has received a status of Not Healed. Subsequent wound encounter measurements are 5cm length x 4cm width x 0.9cm depth, with an area of 20 sq cm and a volume of 18 cubic cm. No tunneling has been noted. No sinus tract has been noted. No undermining has been noted. There is a scant amount of sero-sanguineous drainage noted which has no odor. The patient reports a wound pain of level 0/10. The wound margin is undefined. Wound bed has 26-50% epithel ialization, 1-25% slough, 1-25% pale shook, pink, firm granulation; no eschar present.) Assessment and Plan (1) Cellulitis and abscess of foot Status: Acute Priority: High Comment: Heart Inspection: No cardiac heaves or lifts. Symmetrical expansion with respiration, no other wall motions. Palpation: No thrills appreciated. Point of maximal impulse (PMI) (apical impulse) noted at midclavicular line, in fifth intercostal space. Auscultation: Normal S1 and S2, with regular rate and rhythm. S2 > S1 at the base, S1 > S2 at apex. No splitting of the heart sounds heard. No murmur. No S3 or S4, no friction rub. 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 Incision and drainage as soon as possible. Antibiotics Non-weightbearing 100%
[2019-12-03] MEDS: DOCUSATE SODIUM 100 MG CAPSULE PO SCH ×2 (10:12→21:42)
[2019-12-03] MEDS: FAMOTIDINE 20 MG TABLET PO SCH ×2 (10:13→21:26)
[2019-12-03] MEDS: HEPARIN 5,000 UNIT/ML VIAL SQ SCH ×2 (10:14→21:27)
--- NOTE | 2019-12-03 10:32 | Infectious Disease Prog Note ---
Subjective Patient information: Note initiated : 12/03/19 at 10:05 am Service Date, if different from initiated Date: [] Patient: Primitivo Krueger 59 y/o M admitted on 12/02/19 for infected Foot, surgery . Chief Complaint: [] Interval history: Pt is doing fine. Denied any fever, chills, n/v, diarrhea. Endorses low grade left foot pain. Is NPO for surgical debridement later this am. Objective Objective Narrative: ao x 3, in nad no thrush left foot wrapped in dressing with some soakage on outside due to pus drainage. no redness/tenderness/swelling over left lower leg pt able to wiggle left foot toes without any difficulty - Vital Signs Vital signs: Vital Signs Temp Pulse Resp BP BP Pulse Ox 12/03/19 07:23 36.9 C 96 H 18 139/87 90 12/03/19 03:51 36.9 C 98 H 12 138/74 91 12/02/19 23:30 36.8 C 95 H 14 124/83 94 12/02/19 19:42 36.7 C 102 H 12 130/70 92 12/02/19 16:23 37.1 C 103 H 20 150/90 93 Intake and Output 12/02/19 12/03/19 12/03/19 21:59 05:59 13:59 Intake Total 50 590 Output Total 600 400 Balance 50 -10 -400 Intake: IV 50 50 Zosyn 3.375 gm In Dextrose 5% 50 50 in Water 50 ml @ 100 mls/hr IV Q6H [facility] Rx#:[id number] Oral 540 Output: Void Amount 600 400 Other: Meal Dinner Percent of Meal Consumed 100% Urine Appearance Clear Urine Color Dark Yellow Dark Yellow Urine Odor Strong Strong Weight 132.903 kg Intake & Output: Intake & Output 12/02/19 12/03/19 12/03/19 21:59 05:59 13:59 Intake Total 50 590 Output Total 600 400 Balance 50 -10 -400 Weight 132.903 kg Intake: IV 50 50 Zosyn 3.375 gm In Dextrose 5% 50 50 in Water 50 ml @ 100 mls/hr IV Q6H [facility] Rx#:[id number] Oral 540 Output: Void Amount 600 400 Other: Meal Dinner Percent of Meal Consumed 100% Urine Appearance Clear Urine Color Dark Yellow Dark Yellow Urine Odor Strong Strong - Lab 12/03/19 05:13 12/03/19 05:13 Most recent lab results Calcium 8.6 mg/dl (8.6-10.4) 12/03/19 05:13 Phosphorus 5.3 mg/dL (2.7-4.5) H 12/03/19 05:13 Magnesium 1.4 mg/dL (1.6-2.5) L 12/03/19 05:13 Medications Active Medications: Acetaminophen (Tylenol) 650 mg PO Q6HP PRN PRN Reason: PAIN/FEVER > 101 Hydrocodone Bitart/Acetaminophen ([place] 5/325mg) 1 tab PO Q4HP PRN PRN Reason: PAIN LEVEL 3-6 Albuterol/Ipratropium (Duoneb) 3 ml NEB Q4HP PRN PRN Reason: Shortness Of Breath Dextrose (Dextrose 50%) 0 ml IV UD PRN PRN Reason: Hypoglycemia Diagnostic Test (Pha) (Accu-Chek) 1 each FS ACHS [facility] Last Admin: 12/03/19 07:16 Dose: 1 each Documented by: Admin: 12/02/19 22:40 Dose: 1 each Documented by: Admin: 12/02/19 18:10 Dose: 1 each Documented by: ASHER Docusate Sodium (Colace) 100 mg PO BID [facility] Last Admin: 12/02/19 22:40 Dose: Not Given Documented by: AMARA Non-Admin Reason: Patient Request Famotidine (Pepcid) 20 mg PO BID [facility] Last Admin: 12/02/19 22:41 Dose: 20 mg Documented by: AMARA Glucose (Insta-Glucose) 15 gm PO PRN PRN PRN Reason: Hypoglycemia Heparin Sodium (Porcine) (Heparin) 5,000 unit SQ Q12 [facility] Last Admin: 12/02/19 22:40 Dose: 5,000 unit Documented by: AMARA Potassium Chloride 40 meq/ (Dextrose) 520 mls @ 130 mls/hr IV UD PRN PRN Reason: Potassium < 3 Magnesium Sulfate (Magnesium Sulfate) 2 gm in 50 mls @ 50 mls/hr IV UD PRN PRN Reason: Magnesium </= 1.6 Last Admin: 12/03/19 08:21 Dose: 50 mls/hr Documented by: NESS Piperacillin Sod/Tazobactam (Sod 3.375 gm/ Dextrose) 50 mls @ 100 mls/hr IV Q6H [facility]; Protocol Last Admin: 12/03/19 05:49 Dose: 100 mls/hr Documented by: Infusion: 12/03/19 00:37 Dose: 0 mls/hr Documented by: Admin: 12/02/19 23:54 Dose: 100 mls/hr Documented by: Infusion: 12/02/19 19:37 Dose: 0 mls/hr Documented by: Admin: 12/02/19 19:02 Dose: 100 mls/hr Documented by: AMARA Sodium Chloride (Sodium Chloride 0.9%) 1,000 mls @ 125 mls/hr IV .Q8H [facility] Stop: 12/03/19 15:44 Last Admin: 12/03/19 09:04 Dose: 125 mls/hr Documented by: NESS Insulin Human Lispro (Humalog) 0 unit SQ ACHS [facility]; Protocol Last Admin: 12/03/19 07:18 Dose: Not Given Documented by: NESS Non-Admin Reason: No Coverage Needed Admin: 12/02/19 22:41 Dose: 2 units Documented by: Admin: 12/02/19 18:11 Dose: 6 units Documented by: ASHER Lactulose (Cephulac) 20 gm PO DAILYP PRN PRN Reason: Constipation Ondansetron HCl (Zofran) 4 mg IV Q4HP PRN PRN Reason: Nausea And Vomiting Polyethylene Glycol (Miralax) 17 gm PO DAILYP PRN PRN Reason: Constipation Potassium Chloride (Kdur) 40 meq PO UD PRN PRN Reason: Potssium is 3-3.5 Potassium Chloride (Kdur) 40 meq PO UD PRN PRN Reason: Potassium < 3 Senna (Senokot) 2 tab PO DAILYP PRN PRN Reason: Constipation Sodium Chloride (Saline Flush) 10 ml IV Q8 [facility] Last Admin: 12/03/19 05:49 Dose: 10 ml Documented by: Admin: 12/02/19 22:41 Dose: 10 ml Documented by: AMARA Thiamine HCl (Vitamin B1) 100 mg PO HS [facility] Last Admin: 12/02/19 22:41 Dose: 100 mg Documented by: LSCULLY Assessment and Plan - Narrative A/P Narrative: A: 1. Left foot abscess: 3.2 x 4.2 cm, superficial Cx growing MSSA on multiple occasions MRI done 12/01 showed: Moderate size abscess with severe surrounding cellulitis along the plantar surface of the foot, inferior to the cuboid. Residual low- grade osteomyelitis in the cuboid and lateral cuneiform with chronic treated osteomyelitis in the metatarsals, navicular, medial and intermediate cuneiforms 2. Left foot osteomyelitis: confirmed on MRI 3. 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 The osteomyelitis is multifocal, and therefore raises a significant concern whether antibiotics and surgical debridment would be enough. Recommendations: - Stop IV Zosyn - Start IV Cefazolin 2 gm q8 hrs - surgical debridement and drainage of abscess per Dr Phan today at 11 am - PICC line placement after surgery today - will plan for 6 weeks of IV antibiotics will follow Trenton Shepherd MD Infectious diseases
[2019-12-03] MEDS ORDERED: fentaNYL 100 MCG/2 ML VIAL IV ONE (10:50)
[2019-12-03] MEDS ORDERED: LIDOCAINE HCL/PF 100 MG/5 ML SYRINGE IV ONE (10:50)
[2019-12-03] MEDS ORDERED: KETAMINE 100 MG/ML ML IV ONE (10:50)
[2019-12-03] MEDS ORDERED: ONDANSETRON 4 MG/2 ML VIAL IV ONE (10:50)
[2019-12-03] MEDS ORDERED: GLYCOPYRROLATE 0.2 MG/ML VIAL IV ONE (10:50)
[2019-12-03] MEDS ORDERED: PROPOFOL 200 MG/20 ML VIAL IV ONE (10:50)
[2019-12-03] MEDS ORDERED: MIDAZOLAM 2 MG/2 ML VIAL IV ONE (10:50)
[2019-12-03] MEDS: ceFAZolin 1 GM VIAL IV SCH ×2 (11:41→21:34)
[2019-12-03 15:53] LABS: Basophils # (Auto) 0.07 K/mcL (0.00-0.30); Basophils % (Auto) 1.1 % (0.0-2.0); Eosinophils # (Auto) 0.34 K/mcL (0.00-0.70); Eosinophils % (Auto) 5.6 % (0.0-7.0); Hematocrit 32.8 % (40.1-51.0); Hemoglobin 10.8 g/dL (13.7-17.5); Lymphocytes # (Auto) 1.93 K/mcL (1.50-4.80); Lymphocytes % (Auto) 31.6 % (15.5-49.0); Mean Cell Volume 89.4 fL (80.0-100.0); Mean Corpuscular HGB Conc 32.9 g/dL (31.0-36.0); Mean Platelet Volume 9.6 fL (7.4-10.4); Monocytes # (Auto) 0.35 K/mcL (0.10-0.90); Monocytes % (Auto) 5.7 % (1.0-12.0); Platelet Count 199 K/mcL (140-440); RBC 3.67 M/mcL (4.63-6.08); Red Cell Distribution Width 14.3 % (11.5-14.5); WBC 6.1 K/mcL (4.50-11.00)
[2019-12-03 16:13] LABS: ALT/SGPT 11 U/l (0-40); AST/SGOT 20 U/l (0-37); Albumin/Globulin Ratio 0.5 (1.0-2.3); Alkaline Phosphatase 88 U/L (39-117); Bilirubin,Total 0.4 mg/dL (0.0-1.0); Blood Urea Nitrogen 20 mg/dl (6-20); Calcium 8.5 mg/dl (8.6-10.4); Carbon Dioxide 21 mmol/L (22-30); Chloride 100 mmol/L (96-108); Globulin 5.6 gm/dL (2.2-3.7); Glomerular Filtration Rate 60; Glucose 278 mg/dL (70-105)
[2019-12-03 17:30] LABS: POC Blood Urea Nitrogen 20 mg/dl (6-20); POC CO2 21 mmol/L (22-30); POC Calcium, Ionized 1.08 mmol/L (1.16-1.32); POC Chloride 104 mmol/L (96-108); POC Creatinine 1.3 mg/dl (0.7-1.2); POC Glucose, Random 225 mg/dL (70-105); POC Potassium 5.2 mmol/L (3.3-5.1); POC Sodium 136 mmol/L (133-145)
[2019-12-03] MEDS ORDERED: SODIUM POLYSTYRENE SULFONATE 15 GM/60 ML SUSPENSION PO ONE (17:49)
[2019-12-03] MEDS ORDERED: FUROSEMIDE 20 MG/2 ML VIAL IV ONE ×2 (17:49→18:54)
--- NOTE | 2019-12-03 17:55 | Event Note ---
I was reported that pt's potassium 6.0. His K 1.3 and GFR 60. repeat K 5.2. He has been on D5KCl and KCl supplement which were discontinued. playground monitor EKG NS 50ml/hr, lasix 20mg iv once Kayexalate 15g once Repeat BMP in 3 hours.
[2019-12-03] MEDS ORDERED: SODIUM POLYSTYRENE SULFONATE 15 GM/60 ML SUSPENSION ONE (18:55)
[2019-12-03] MEDS: 0.9 % SODIUM CHLORIDE 1,000 ML IV SCH (18:59)
[2019-12-03] MEDS: THIAMINE 100 MG TABLET PO SCH (21:26)
[2019-12-04 00:09] LABS: Blood Urea Nitrogen 18 mg/dl (6-20); Calcium 8.9 mg/dl (8.6-10.4); Carbon Dioxide 23 mmol/L (22-30); Chloride 98 mmol/L (96-108); Glomerular Filtration Rate 66; Glucose 185 mg/dL (70-105)
[2019-12-04] MEDS: ceFAZolin 1 GM VIAL IV SCH ×3 (05:20→21:33)
[2019-12-04] MEDS: 0.9 % SODIUM CHLORIDE 10 ML SYRINGE IV SCH ×3 (05:21→20:29)
[2019-12-04 06:34] LABS: Basophils # (Auto) 0.06 K/mcL (0.00-0.30); Basophils % (Auto) 0.7 % (0.0-2.0); Eosinophils # (Auto) 0.35 K/mcL (0.00-0.70); Granulocytes % (Auto) 55.7 % (38.0-78.0); Hematocrit 34.3 % (40.1-51.0); Hemoglobin 11.1 g/dL (13.7-17.5); Lymphocytes # (Auto) 2.67 K/mcL (1.50-4.80); Lymphocytes % (Auto) 30.9 % (15.5-49.0); Mean Cell Volume 89.3 fL (80.0-100.0); Mean Corpuscular HGB Conc 32.4 g/dL (31.0-36.0); Mean Platelet Volume 9.8 fL (7.4-10.4); Monocytes # (Auto) 0.75 K/mcL (0.10-0.90); Monocytes % (Auto) 8.7 % (1.0-12.0); Platelet Count 215 K/mcL (140-440); RBC 3.84 M/mcL (4.63-6.08); Red Cell Distribution Width 14.2 % (11.5-14.5); WBC 8.7 K/mcL (4.50-11.00)
[2019-12-04 06:58] LABS: ALT/SGPT 10 U/l (0-40); AST/SGOT 19 U/l (0-37); Albumin 3.1 gm/dL (3.2-5.2); Albumin/Globulin Ratio 0.6 (1.0-2.3); Alkaline Phosphatase 88 U/L (39-117); Bilirubin,Total 0.3 mg/dL (0.0-1.0); Blood Urea Nitrogen 16 mg/dl (6-20); Calcium 8.6 mg/dl (8.6-10.4); Carbon Dioxide 24 mmol/L (22-30); Chloride 100 mmol/L (96-108); Globulin 5.6 gm/dL (2.2-3.7); Glomerular Filtration Rate 66; Glucose 138 mg/dL (70-105)
[2019-12-04] MEDS: INSULIN LISPRO 1 UNIT/0.01 ML UNIT SQ SCH ×4 (07:43→20:28)
[2019-12-04] MEDS: HEPARIN 5,000 UNIT/ML VIAL SQ SCH ×2 (10:54→20:28)
[2019-12-04] MEDS: FAMOTIDINE 20 MG TABLET PO SCH ×2 (10:54→20:28)
[2019-12-04] MEDS: DOCUSATE SODIUM 100 MG CAPSULE PO SCH ×2 (10:54→20:27)
--- NOTE | 2019-12-04 11:41 | Internal Med Progress Note ---
Medical - PN: Subj Patient information: Note initiated : 12/04/19 at 11:31 am Service Date, if different from initiated Date: [] Patient: Primitivo Krueger a 59 y/o M admitted on 12/02/19 for infected Foot, surgery . Chief Complaint: [] Interval history: Mr. Krueger is a 59 year old M Presents to infectious disease clinic and referred by cash posting representative for cellulitis left foot. Work-up included imaging showed an abscess and osteomyelitis. Discussed case with Dr. Blue for direct admission. Patient will be started on Zosyn and will receive I&D by podiatry, Dr. Phan. Patient is at this point for over a year. Had a lot of swelling and redness and at times. The swelling is actually improved a little bit lately. And is actually started look better however we open up the dressing this morning the small wound on his lateral aspect was more red oozing a little bit of blood. Dr. Phan saw him first this morning then referred him to Dr. Blue. Further imaging was obtained, MRI which showed abscess and osteomyelitis. denies any fever chills 12/02 Doing well no overnight events or new complaints. N.p.o. waiting for surgical evaluation. 5 Patient complains of mild fatigue. Pain is controlled. Otherwise she is fine. He has mild tachycardia. Blood pressure is not controlled well. Will start metoprolol and amlodipine. Discussed with ID Dr. Cali. As per Dr. Cali, PICC line was ordered. After that, patient can be discharged home to follow with Dr. Cali in 4 weeks. Cefazo liya 2g iv Q8hrs with Cadd pump x 6 weeks. Check cbc and BMP weekly. check ESR and CRP every other week. Discussed with Dr. Phan who will see pt in 2-3 days and ask RN to change dressing for pt. Review of Systems: Positive for fatigue. All other systems were reviewed and are negative. - Constitutional Vitals: Vital Signs Temp Pulse Resp BP Pulse Ox 99.0 F 102 H 16 161/82 91 12/04/19 08:00 12/04/19 08:00 12/04/19 08:00 12/04/19 08:00 12/04/19 08:00 Period Temp Pulse Resp BP Sys/Miller Pulse Ox Last 24 Hr 97.7 F-99.1 F 92-102 12-18 137-161/78-89 90-94 Intake and Output 12/03/19 12/04/19 12/04/19 21:59 05:59 13:59 Intake Total 1999 1124 240 Output Total 2600 775 600 Balance -600 350 -360 Weight 132.131 kg Intake & Output: Intake & Output 12/03/19 12/04/19 12/04/19 21:59 05:59 13:59 Intake Total 1999 1125 240 Output Total 2600 775 600 Balance -600 350 -360 Weight 132.131 kg Intake: IV 1000 Sodium Chloride 0.9% 1,000 ml @ 1000 125 mls/hr IV .Q8H [facility] Rx#: [id number] Oral 1999 125 240 Output: Urine Catheter Amount 450 Void Amount 2151 775 600 Other: Meal Dinner Percent of Meal Consumed 100% Feeding Ability Independent Urine Appearance Clear Clear Clear Urine Color Pale Pale Bright Yellow Urine Odor Normal Normal - Additional findings Additional findings: General: Alert, Awake, No acute Distress, obese Eyes/N/T: EOMI, Head/Neck: neck supple, CV: RRR, No murmurs, Pulm: Clear b/l, no wheezing/rhonchi/rales Abd: soft, nontender, +BS x4 Ext: no clubbing/cyanosis, 1+ b/l LE edema, Left foot in dressing dry Neuro: Alert, no focal deficits, moves all extremities, Skin: warm/dry Psych: normal mood. Medical - PN: Obj Da - Labs CBC & Chem 7: 12/04/19 05:21 12/04/19 05:20 Labs: Abnormal Lab Results 12/04/19 12/04/19 12/03/19 05:21 05:20 21:09 RBC 3.84 L Hgb 11.1 L Hct 34.3 L POC Hct Sodium 132 L POC Potassium Potassium Carbon Dioxide POC Total CO2 BUN Creatinine POC Creatinine Glucose 138 H 185 H POC Glucose Calcium POC WB Ioniz Calcium Phosphorus Magnesium Total Protein 8.7 H Albumin 3.1 L Globulin 5.6 H Albumin/Globulin Ratio 0.6 L Triglycerides 12/03/19 12/03/19 12/03/19 17:25 14:34 14:34 RBC 3.67 L Hgb 10.8 L Hct 32.8 L POC Hct 35.0 L Sodium 131 L POC Potassium 5.2 H Potassium 6.0 H* Carbon Dioxide 21 L POC Total CO2 21 L BUN Creatinine 1.3 H POC Creatinine 1.3 H Glucose 278 H POC Glucose 225 H Calcium 8.5 L POC WB Ioniz Calcium 1.08 L Phosphorus Magnesium Total Protein 8.6 H Albumin 3.0 L Globulin 5.6 H Albumin/Globulin Ratio 0.5 L Triglycerides 12/03/19 12/03/19 05:13 05:13 RBC 3.61 L Hgb 10.7 L Hct 31.8 L POC Hct Sodium 131 L POC Potassium Potassium Carbon Dioxide POC Total CO2 BUN 23 H Creatinine 1.3 H POC Creatinine Glucose POC Glucose Calcium POC WB Ioniz Calcium Phosphorus 5.3 H Magnesium 1.4 L Total Protein 8.5 H Albumin 2.9 L Globulin 5.6 H Albumin/Globulin Ratio 0.5 L Triglycerides 153 H Meds: Medications Acetaminophen (Tylenol) 650 mg PO Q6HP PRN PRN Reason: PAIN/FEVER > 101 Hydrocodone Bitart/Acetaminophen ([place] 5/325mg) 1 tab PO Q4HP PRN PRN Reason: PAIN LEVEL 3-6 Albuterol/Ipratropium (Duoneb) 3 ml NEB Q4HP PRN PRN Reason: Shortness Of Breath Cefazolin Sodium (Ancef) 2 gm IV Q8H [facility] Last Admin: 12/04/19 05:20 Dose: 2 gm Documented by: Dextrose (Dextrose 50%) 0 ml IV UD PRN PRN Reason: Hypoglycemia Diagnostic Test (Pha) (Accu-Chek) 1 each FS ACHS [facility] Last Admin: 12/04/19 07:41 Dose: 1 each Documented by: Docusate Sodium (Colace) 100 mg PO BID [facility] Last Admin: 12/04/19 10:54 Dose: Not Given Documented by: Famotidine (Pepcid) 20 mg PO BID [facility] Last Admin: 12/04/19 10:54 Dose: 20 mg Documented by: Glucose (Insta-Glucose) 15 gm PO PRN PRN PRN Reason: Hypoglycemia Heparin Sodium (Porcine) (Heparin) 5,000 unit SQ Q12 [facility] Last Admin: 12/04/19 10:54 Dose: 5,000 unit Documented by: Heparin Sodium (Porcine) (Heparin 10 Units/Ml Flush) 2 ml IV Q12 [facility] Magnesium Sulfate (Magnesium Sulfate) 2 gm in 50 mls @ 50 mls/hr IV UD PRN PRN Reason: Magnesium </= 1.6 Last Infusion: 12/03/19 10:11 Dose: Infused Documented by: Sodium Chloride (Sodium Chloride 0.9%) 1,000 mls @ 50 mls/hr IV .Q20H [facility] Last Admin: 12/03/19 18:59 Dose: 50 mls/hr Documented by: Insulin Human Lispro (Humalog) 0 unit SQ ACHS [facility]; Protocol Last Admin: 12/04/19 07:43 Dose: Not Given Documented by: Lactulose (Cephulac) 20 gm PO DAILYP PRN PRN Reason: Constipation Ondansetron HCl (Zofran) 4 mg IV Q4HP PRN PRN Reason: Nausea And Vomiting Polyethylene Glycol (Miralax) 17 gm PO DAILYP PRN PRN Reason: Constipation Senna (Senokot) 2 tab PO DAILYP PRN PRN Reason: Constipation Sodium Chloride (Saline Flush) 10 ml IV Q8 [facility] Last Admin: 12/04/19 05:21 Dose: Not Given Documented by: Thiamine HCl (Vitamin B1) 100 mg PO HS [facility] Last Admin: 12/03/19 21:26 Dose: 100 mg Documented by: Medical - PN: A/P - Time Spent With Patient Total time spent is greater than 50% in coordination of care (as documented) at patient's floor/unit and/or counseling patient: - Narrative A/P Narrative: Assessment: *Left foot cellitis/osteomyelitis/abscess: *DM: A1c 9.3 in September *HTN: *GERD: *Asthma: *Obesity: *Depression: *hyperkalemia, mild: *h/o Alcohol use: no alcohol last several months *History of Hyponatremia usually related to alcohol *Hypomag: Plan: 1. Patient underwent I&D by podiatry Dr. Phan on 12/03/[address] Cail. As per Dr. Cali, PICC line was ordered. After that, patient can be discharged home to follow with Dr. Cali in 4 weeks. Cefazolin 2g iv Q8hrs with Cadd pump x 6 weeks. Check cbc and BMP weekly. check ESR and CRP every other week. Discussed with Dr. Phan who will see pt in 2-3 days and ask RN to change dressing for pt. 2. Blood pressure is not controlled well. Will start metoprolol and amlodipine. Held losartan for hyperkalemia 3. Continue glimepiride/SSI 4. Wound care 5. pt/ot 6. ppx: Heparin full code
[2019-12-04] MEDS: amLODIPine 5 MG TABLET PO SCH (12:10)
[2019-12-04] MEDS: METOPROLOL TARTRATE 25 MG TABLET PO SCH ×2 (12:10→20:28)
[2019-12-04] MEDS: ACETAMINOPHEN 325 MG TABLET PO PRN ×2 (13:24→22:03)
[2019-12-04] MEDS: 0.9 % SODIUM CHLORIDE 1,000 ML IV SCH (15:18)
[2019-12-04] MEDS: THIAMINE 100 MG TABLET PO SCH (20:28)
--- NOTE | 2019-12-04 21:50 | Infectious Disease Prog Note ---
Subjective Patient information: Note initiated : 12/04/19 at 9:47 pm Service Date, if different from initiated Date: [] Patient: Primitivo Krueger 59 y/o M admitted on 12/02/19 for infected Foot, surgery . Chief Complaint: [] Interval history: Pt doing fine. Denied any fever, chills, n/v, diarrhea. Foot wound covered by dressing Objective Objective Narrative: ao x 3, in nad no thrush left foot: wrapped in surgical dressing. Pt able to wiggle distal toes without difficulty, no discoloration. - Vital Signs Vital signs: Vital Signs Temp Pulse Resp BP Pulse Ox 12/04/19 16:00 36.9 C 94 H 16 168/84 92 12/04/19 12:00 36.7 C 99 H 16 170/86 92 12/04/19 08:00 37.2 C 102 H 16 161/82 91 12/04/19 03:55 37.3 C H 102 H 16 137/87 92 12/03/19 23:15 37.1 C 92 H 12 148/89 94 Intake and Output 12/04/19 12/04/19 12/04/19 05:59 13:59 21:59 Intake Total 4699 126 0837 Output Total 775 950 325 Balance 350 -710 675 Intake: IV 1000 1000 Sodium Chloride 0.9% 1,000 ml @ 1000 1000 50 mls/hr IV .Q20H [facility] Rx#: [id number] Oral 125 240 Output: Void Amount 775 950 325 Other: Urine Appearance Clear Clear Clear Urine Color Pale Bright Yellow Bright Yellow Urine Odor Normal Normal Weight 132.131 kg 132.131 kg Patient Weight 12/05/19 05:59 Weight 132.131 kg Intake & Output: Intake & Output 12/04/19 12/04/19 12/04/19 05:59 13:59 21:59 Intake Total 1990 614 4031 Output Total 775 950 325 Balance 350 -710 675 Weight 132.131 kg 132.131 kg Intake: IV 1000 1000 Sodium Chloride 0.9% 1,000 ml @ 1000 1000 50 mls/hr IV .Q20H [facility] Rx#: [id number] Oral 125 240 Output: Void Amount 775 950 325 Other: Urine Appearance Clear Clear Clear Urine Color Pale Bright Yellow Bright Yellow Urine Odor Normal Normal - Lab 12/05/19 05:08 12/05/19 05:08 Most recent lab results Calcium 8.6 mg/dl (8.6-10.4) 12/04/19 05:20 Phosphorus 5.3 mg/dL (2.7-4.5) H 12/03/19 05:13 Magnesium 1.4 mg/dL (1.6-2.5) L 12/03/19 05:13 Medications Active Medications: Acetaminophen (Tylenol) 650 mg PO Q6HP PRN PRN Reason: PAIN/FEVER > 101 Last Admin: 12/04/19 13:24 Dose: 650 mg Documented by: NESS Hydrocodone Bitart/Acetaminophen ([place] 5/325mg) 1 tab PO Q4HP PRN PRN Reason: PAIN LEVEL 3-6 Albuterol/Ipratropium (Duoneb) 3 ml NEB Q4HP PRN PRN Reason: Shortness Of Breath Amlodipine Besylate (Norvasc) 2.5 mg PO DAILY [facility] Last Admin: 12/04/19 12:10 Dose: 2.5 mg Documented by: NESS Cefazolin Sodium (Ancef) 2 gm IV Q8H [facility] Last Admin: 12/04/19 21:33 Dose: 2 gm Documented by: Admin: 12/04/19 15:19 Dose: 2 gm Documented by: Admin: 12/04/19 05:20 Dose: 2 gm Documented by: Admin: 12/03/19 21:34 Dose: 2 gm Documented by: Admin: 12/03/19 11:41 Dose: 2 gm Documented by: NESS Dextrose (Dextrose 50%) 0 ml IV UD PRN PRN Reason: Hypoglycemia Diagnostic Test (Pha) (Accu-Chek) 1 each FS ACHS [facility] Last Admin: 12/04/19 20:27 Dose: 1 each Documented by: Admin: 12/04/19 16:46 Dose: 1 each Documented by: Admin: 12/04/19 11:56 Dose: 1 each Documented by: Admin: 12/04/19 07:41 Dose: 1 each Documented by: Admin: 12/03/19 21:26 Dose: 1 each Documented by: Admin: 12/03/19 16:49 Dose: 1 each Documented by: Admin: 12/03/19 11:24 Dose: 1 each Documented by: Admin: 12/03/19 07:16 Dose: 1 each Documented by: Admin: 12/02/19 22:40 Dose: 1 each Documented by: Admin: 12/02/19 18:10 Dose: 1 each Documented by: ASHER Docusate Sodium (Colace) 100 mg PO BID [facility] Admin: 12/04/19 20:27 Dose: 100 mg Documented by: Admin: 12/04/19 10:54 Dose: Not Given Documented by: NESS Non-Admin Reason: Patient Refused Admin: 12/03/19 21:42 Dose: Not Given Documented by: MOE Non-Janis Reason: Clinical Judgement Admin: 12/03/19 10:12 Dose: Not Given Documented by: NESS Non-Admin Reason: Loose Stool Admin: 12/02/19 22:40 Dose: Not Given Documented by: AMARA Non-Admin Reason: Patient Request Famotidine (Pepcid) 20 mg PO BID [facility] Admin: 12/04/19 20:28 Dose: 20 mg Documented by: Admin: 12/04/19 10:54 Dose: 20 mg Documented by: Admin: 12/03/19 21:26 Dose: 20 mg Documented by: Admin: 12/03/19 10:13 Dose: Not Given Documented by: NESS Non-Admin Reason: GOING TO SURGERY] Admin: 12/02/19 22:41 Dose: 20 mg Documented by: AMARA Glimepiride (Amaryl) 2 mg PO DAILY [facility] Glucose (Insta-Glucose) 15 gm PO PRN PRN PRN Reason: Hypoglycemia Heparin Sodium (Porcine) (Heparin) 5,000 unit SQ Q12 [facility] Admin: 12/04/19 20:28 Dose: 5,000 unit Documented by: Admin: 12/04/19 10:54 Dose: 5,000 unit Documented by: Admin: 12/03/19 21:27 Dose: 5,000 unit Documented by: Admin: 12/03/19 10:14 Dose: Not Given Documented by: NESS Non-Admin Reason: HELD FOR SURGERY Admin: 12/02/19 22:40 Dose: 5,000 unit Documented by: AMARA Heparin Sodium (Porcine) (Heparin 10 Units/Ml Flush) 2 ml IV Q12 [facility] Last Admin: 12/04/19 20:29 Dose: Not Given Documented by: MOE Non-Admin Reason: no PICC line Magnesium Sulfate (Magnesium Sulfate) 2 gm in 50 mls @ 50 mls/hr IV UD PRN PRN Reason: Magnesium </= 1.6 Last Infusion: 12/03/19 10:11 Dose: 50 mls/hr Documented by: Admin: 12/03/19 08:21 Dose: 50 mls/hr Documented by: NESS Sodium Chloride (Sodium Chloride 0.9%) 1,000 mls @ 50 mls/hr IV .Q20H [facility] Last Admin: 12/04/19 15:18 Dose: 50 mls/hr Documented by: Infusion: 12/04/19 14:59 Dose: 50 mls/hr Documented by: Admin: 12/03/19 18:59 Dose: 50 mls/hr Documented by: MOE Insulin Human Lispro (Humalog) 0 unit SQ ACHS [facility]; Protocol Last Admin: 12/04/19 20:28 Dose: 4 units Documented by: Admin: 12/04/19 16:47 Dose: Not Given Documented by: NESS Non-Admin Reason: No Coverage Needed Admin: 12/04/19 12:09 Dose: 6 units Documented by: Admin: 12/04/19 07:43 Dose: Not Given Documented by: NESS Non-Admin Reason: No Coverage Needed Admin: 12/03/19 21:34 Dose: 4 units Documented by: Admin: 12/03/19 16:52 Dose: 6 units Documented by: Admin: 12/03/19 11:25 Dose: Not Given Documented by: NESS Non-Admin Reason: No Coverage Needed Admin: 12/03/19 07:18 Dose: Not Given Documented by: NESS Non-Admin Reason: No Coverage Needed Admin: 12/02/19 22:41 Dose: 2 units Documented by: Admin: 12/02/19 18:11 Dose: 6 units Documented by: LCOURTRIGH Lactulose (Cephulac) 20 gm PO DAILYP PRN PRN Reason: Constipation Levothyroxine Sodium (Synthroid) 100 mcg PO 1HRACB [facility] Metoprolol Tartrate (Lopressor) 12.5 mg PO BID [facility] Last Admin: 12/04/19 20:28 Dose: 12.5 mg Documented by: Admin: 12/04/19 12:10 Dose: 12.5 mg Documented by: NESS Ondansetron HCl (Zofran) 4 mg IV Q4HP PRN PRN Reason: Nausea And Vomiting Polyethylene Glycol (Miralax) 17 gm PO DAILYP PRN PRN Reason: Constipation Senna (Senokot) 2 tab PO DAILYP PRN PRN Reason: Constipation Sodium Chloride (Saline Flush) 10 ml IV Q8 [facility] Admin: 12/04/19 20:29 Dose: Not Given Documented by: MOE Non-Admin Reason: Continuous IV Admin: 12/04/19 14:47 Dose: Not Given Documented by: NESS Non-Admin Reason: Bag Still Infusing Admin: 12/04/19 05:21 Dose: Not Given Documented by: MOE Non-Admin Reason: Continuous IV Admin: 12/03/19 21:42 Dose: Not Given Documented by: MOE Non-Admin Reason: Continuous IV Admin: 12/03/19 14:45 Dose: Not Given Documented by: NESS Non-Admin Reason: Bag Still Infusing Admin: 12/03/19 05:49 Dose: 10 ml Documented by: Admin: 12/02/19 22:41 Dose: 10 ml Documented by: AMARA Thiamine HCl (Vitamin B1) 100 mg PO [facility] Last Admin: 12/04/19 20:28 Dose: 100 mg Documented by: Admin: 12/03/19 21:26 Dose: 100 mg Documented by: Admin: 12/02/19 22:41 Dose: 100 mg Documented by: AMARA Assessment and Plan - Narrative A/P Narrative: A: 1. Left foot abscess: 3.2 x 4.2 cm, superficial Cx growing MSSA on multiple occasions MRI done 12/01 showed: Moderate size abscess with severe surrounding cellulitis along the plantar surface of the foot, inferior to the cuboid. Residual low- grade osteomyelitis in the cuboid and lateral cuneiform with chronic treated osteomyelitis in the metatarsals, navicular, medial and intermediate cuneiforms - s/p surgical drainage of abscess on 12/03/19 2. Left foot osteomyelitis: confirmed on MRI 3. 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 The osteomyelitis is multifocal, and therefore raises a significant concern whether antibiotics and surgical debridment would be enough. Recommendations: - Continue IV Cefazolin 2 gm q8 hrs, day 2 - PICC line placement at 9 am tomorrow - will plan for 6 weeks of IV antibiotics - f/u labs: CBC, BMP weekly ESR, CRP every other week - ID clinic f/u appt in 4 weeks - pt counseled about potential side effects of Cefazolin: Cdiff, antibiotic associated diarrhea Trenton Shepherd MD Infectious diseases
[2019-12-05] MEDS: ceFAZolin 1 GM VIAL IV SCH ×2 (06:01→13:18)
[2019-12-05] MEDS: 0.9 % SODIUM CHLORIDE 10 ML SYRINGE IV SCH (06:02)
[2019-12-05 06:34] LABS: Basophils # (Auto) 0.07 K/mcL (0.00-0.30); Basophils % (Auto) 0.7 % (0.0-2.0); Eosinophils # (Auto) 0.36 K/mcL (0.00-0.70); Eosinophils % (Auto) 3.8 % (0.0-7.0); Granulocytes % (Auto) 49.7 % (38.0-78.0); Lymphocytes # (Auto) 3.34 K/mcL (1.50-4.80); Lymphocytes % (Auto) 35.1 % (15.5-49.0); Mean Cell Volume 90.4 fL (80.0-100.0); Mean Corpuscular HGB Conc 32.4 g/dL (31.0-36.0); Monocytes # (Auto) 1.02 K/mcL (0.10-0.90); Monocytes % (Auto) 10.7 % (1.0-12.0); Platelet Count 201 K/mcL (140-440); RBC 3.76 M/mcL (4.63-6.08); WBC 9.5 K/mcL (4.50-11.00)
[2019-12-05] MEDS ORDERED: LEVOTHYROXINE 100 MCG TABLET PO SCH (07:00)
[2019-12-05 07:03] LABS: ALT/SGPT 6 U/l (0-40); AST/SGOT 19 U/l (0-37); Albumin/Globulin Ratio 0.5 (1.0-2.3); Alkaline Phosphatase 85 U/L (39-117); Bilirubin,Total 0.5 mg/dL (0.0-1.0); Blood Urea Nitrogen 16 mg/dl (6-20); Calcium 8.8 mg/dl (8.6-10.4); Carbon Dioxide 25 mmol/L (22-30); Chloride 97 mmol/L (96-108); Globulin 5.8 gm/dL (2.2-3.7); Glomerular Filtration Rate 83; Glucose 122 mg/dL (70-105)
[2019-12-05] MEDS: INSULIN LISPRO 1 UNIT/0.01 ML UNIT SQ SCH ×2 (07:46→13:05)
[2019-12-05] MEDS: DOCUSATE SODIUM 100 MG CAPSULE PO SCH (08:44)
[2019-12-05] MEDS: amLODIPine 5 MG TABLET PO SCH (08:44)
[2019-12-05] MEDS: HEPARIN 5,000 UNIT/ML VIAL SQ SCH (08:45)
[2019-12-05] MEDS: METOPROLOL TARTRATE 25 MG TABLET PO SCH (08:45)
[2019-12-05] MEDS: FAMOTIDINE 20 MG TABLET PO SCH (08:45)
[2019-12-05] MEDS ORDERED: GLIMEPIRIDE 2 MG TABLET PO SCH (09:00)
[2019-12-05] MEDS ORDERED: LOSARTAN 50 MG TABLET PO SCH (09:00)
--- NOTE | 2019-12-05 13:07 | Discharge Summary ---
Medical - DS: Prov Patient information: Note initiated : 12/05/19 at 1:03 pm Service Date, if different from initiated Date: [] Patient: Primitivo Krueger a 59 y/o M admitted on 12/02/19 for infected Foot, surgery . Chief Complaint: [] Refer to H&P by Rm Kern on 12/02/19 Mr. Krueger is a 59 year old M Presents to infectious disease clinic and referred by graduate engineer for cellulitis left foot. Work-up included imaging showed an abscess and osteomyelitis. Discussed case with Dr. Blue for direct admission. Patient will be started on Zosyn and will receive I&D by podiatry, Dr. Phan. Patient is at this point for over a year. Had a lot of swelling and redness and at times. The swelling is actually improved a little bit lately. And is actually started look better however we open up the dressing this morning the small wound on his lateral aspect was more red oozing a little bit of blood. Dr. Phan saw him first this morning then referred him to Dr. Blue. Further imaging was obtained, MRI which showed abscess and osteomyelitis. denies any fever chills Date of admission: 12/02/19 17:45 Discharge date: 12/05/19 Primary care physician: Haja Roper Consults: 12/02/19 16:25 Consult to Physician [CONS] Routine Comment: Consulting Provider: Trenton Blue Reason For Exam: Physician to Consult 12/02/19 16:27 Consult to Physician [CONS] Routine Comment: Consulting Provider: Faustino Phan Reason For Exam: Physician to Consult Medical - DS: Meds - Discharge Medications Prescriptions: Accu-Chek 1 each FS ACHS #100 strip Transmission Status: Pending to [facility] ceFAZolin [Ancef] 2 gm IV Q8H #126 vial Transmission Status: Pending to [facility] Insulin Lispro [Humalog] See Protocol SQ ACHS #100 unit Transmission Status: Pending to [facility] Metoprolol Tartrate [Lopressor] 12.5 mg PO BID #60 tab Transmission Status: Pending to [facility] HYDROcodone/APAP 5/325MG [[place] 5-325Mg] 1 tab PO Q6HP PRN #9 tablet PRN Reason: Pain Level 3-6 amLODIPine [Norvasc] 2.5 mg PO DAILY #30 tab Transmission Status: Pending to [facility] Thiamine [Vitamin B1] 100 mg PO HS #30 tab Transmission Status: Pending to [facility] Active and Home Medications: Home Medications Albuterol Sulfate [Ventolin] 2 puff INH QIDP PRN 02/27/19 [History Confirmed 12/02/19 Last Taken Unknown] Omeprazole [PriLOSEC] 20 mg PO PRN PRN 05/27/19 [History Confirmed 12/02/19 Last Taken Unknown] losartan 50 mg tablet 50 mg PO DAILY #30 tab 08/13/19 [Rx Confirmed 12/02/19 Last Taken Unknown] bupropion HCl 75 mg tablet 75 mg PO QAM #30 tab 09/22/19 [Rx Confirmed 12/02/19 Last Taken Unknown] blood sugar diagnostic See Rx Instructions .ROUTE .MEDSUPPLY #100 each 10/30/19 [Rx Confirmed 12/02/19 Last Taken Unknown] Gabapentin [Neurontin] 1 cap PO BID 12/02/19 [History Confirmed 12/02/19 Last Taken Unknown] Glimepiride 2 tab PO DAILY 12/02/19 [History Confirmed 12/02/19 Last Taken Unknown] Indomethacin 1 cap PO DAILY 12/02/19 [History Confirmed 12/02/19 Last Taken Unknown] Levothyroxine Sodium [Synthroid] 100 mcg PO 1HRACB 12/02/19 [History Confirmed 12/02/19 Last Taken Unknown] Mirtazapine [Remeron] 0.5 tab PO HS 12/02/19 [History Confirmed 12/02/19 Last Taken Unknown] Naltrexone HCl 1 tab PO DAILY 12/02/19 [History Confirmed 12/02/19 Last Taken Unknown] metFORMIN HCL [Glucophage Xr] 2 tab PO BID 12/02/19 [History Confirmed 12/02/19 Last Taken Unknown] Medical - DS: Hosp Hospital Course: Mr. Krueger is a 59 year old M Presents to infectious disease clinic and referred by graduate engineer for cellulitis left foot. Work-up included imaging showed an abscess and osteomyelitis. Discussed case with Dr. Blue for direct admission. Patient will be started on Zosyn and will receive I&D by podiatry, Dr. Phan. Patient is at this point for over a year. Had a lot of swelling and redness and at times. The swelling is actually improved a little bit lately. And is actually started look better however we open up the dressing this morning the small wound on his lateral aspect was more red oozing a little bit of blood. Dr. Phan saw him first this morning then referred him to Dr. Blue. Further imaging was obtained, MRI which showed abscess and osteomyelitis. denies any fever chills *Left foot cellitis/osteomyelitis/abscess, s/p I&D on 12/[address] Phan. Patient underwent I&D by podiatry Dr. Phan on 12/03/[address] Cali. As per Dr. Cali, PICC line was ordered. After that, patient can be discharged home to follow with Dr. Cali in 4 weeks. Cefazolin 2g iv Q8hrs with Cadd pump x 6 weeks. Check cbc and BMP weekly. check ESR and CRP every other week. Discussed with Dr. Phan who will see pt in 2-3 days and ask RN to change dressing for pt. *DM: A1c 9.3 in September Continue glimepiride/SSI *HTN: Blood pressure is better controlled now. continue metoprolol and amlodipine. Held losartan for hyperkalemia *GERD: *Asthma: *Obesity: *Depression: *hyperkalemia, mild: *h/o Alcohol use: no alcohol last several months *History of Hyponatremia usually related to alcohol *Hypoma/6 Doing well no overnight events or new complaints. N.p.o. waiting for surgical evaluation. 12/03 Patient complains of mild fatigue. Pain is controlled. Otherwise she is fine. He has mild tachycardia. Blood pressure is not controlled well. Will start metoprolol and amlodipine. Discussed with ID Dr. Cali. As per Dr. Cali, PICC line was ordered. After that, patient can be discharged home to follow with Dr. Cali in 4 weeks. Cefazolin 2g iv Q8hrs with Cadd pump x 6 weeks. Check cbc and BMP weekly. check ESR and CRP every other week. Discussed with Dr. Phan who will see pt in 2-3 days and ask RN to change dressing for pt. 12/04 Patient does not have any complaints. vital signs are stable. Patient will be discharged to home to follow with pcp, ID Dr. Blue and podiatry Dr. Phan. He will have PICC line paced today. f/u and treatment plan as mentioned above. Call pcp for medical issues. Discharge diagnosis: Left foot cellitis/osteomyelitis/abscess - Time Spent with Patient Total time spent providing and/or coordinating discharge services: Greater than 30 minutes Medical - DS: Exam - Constitutional Vitals: Vital Signs Temp Pulse Resp BP Pulse Ox 12/05/19 08:00 98.4 F 82 18 134/76 93 12/05/19 07:16 80 12/05/19 03:40 98.6 F 80 16 135/82 95 12/04/19 23:15 99.6 F H 83 16 143/86 94 12/04/19 20:10 99.2 F H 86 12 124/74 92 12/04/19 16:00 98.4 F 94 H 16 168/84 92 Intake and Output 12/04/19 12/05/19 12/05/19 21:59 05:59 13:59 Intake Total 1375 0 480 Output Total 1075 600 700 Balance 300 -600 -220 Intake: IV 1000 Sodium Chloride 0.9% 1,000 ml @ 1000 50 mls/hr IV .Q20H [facility] Rx#: [id number] Oral 375 0 480 Output: Void Amount 1075 600 700 Other: Percent of Meal Consumed 75% Feeding Ability Independent Urine Appearance Clear Clear Clear Urine Color Bright Yellow Bright Yellow Bright Yellow Urine Odor Normal Weight 132.313 kg - Other Additional findings: General: Alert, Awake, No acute Distress, obese Eyes/N/T: EOMI, Head/Neck: neck supple, CV: RRR, No murmurs, Pulm: Clear b/l, no wheezing/rhonchi/rales Abd: soft, nontender, +BS x4 Ext: no clubbing/cyanosis, 1+ b/l LE edema, Left foot in dressing dry Neuro: Alert, no focal deficits, moves all extremities, Skin: warm/dry Psych: normal mood. Medical - DS: Data Labs on day of discharge: Labs from last 24 hours 12/05/19 12/05/19 05:08 05:08 WBC 9.5 RBC 3.76 L Hgb 11.0 L Hct 34.0 L MCV 90.4 MCH 29.3 MCHC 32.4 RDW 14.0 Plt Count 201 MPV 10.0 Gran % 49.7 Lymph % (Auto) 35.1 Thayer % (Auto) 10.7 Eos % (Auto) 3.8 Baso % (Auto) 0.7 Gran # 4.73 Lymph # (Auto) 3.34 Thayer # (Auto) 1.02 H Eos # (Auto) 0.36 Baso # (Auto) 0.07 Sodium 131 L Potassium 4.6 Chloride 97 Carbon Dioxide 25 Anion Gap 9.0 BUN 16 Creatinine 1.0 GFR Calculation 83 Glucose 122 H Calcium 8.8 Total Bilirubin 0.5 AST 19 ALT 6 Alkaline Phosphatase 85 Total Protein 8.8 H Albumin 3.0 L Globulin 5.8 H Albumin/Globulin Ratio 0.5 L Medical - DS: A/P - Patient/Caregiver Discharge Instructions Activity: increase activity as tolerated Diet: Consistent Carbohydrate Additional Instructions: Print out Blood sugars for patient to take to his doctor's appointment. - Follow up Plan Follow up with: Trenton Blue MD [Physician] - 01/01/20 9:15 am Faustino Phan DPM [Physician] - (Please call Sunday and schedule a follow up.) pcp [Other] (in 3 days) Disposition: Home, Self-Care Care Plan Goals: This discharge packet is provided to you to help keep you informed about your care. We want to ensure you get everything you need when you go home. You will also be receiving a call from us in a few days to follow up with you and see how you are doing since your discharge. This gives us a chance to listen to any concerns you maybe experiencing since you were discharged or any additional needs you may have, as well as providing us feedback on your care experience. We strive to always provide excellent care and thank you for your feedback and for choosing [facility]. Prognosis: Fair Rehab Potential: Fair
[2019-12-05] MEDS: 0.9 % SODIUM CHLORIDE 1,000 ML IV SCH (13:10)
--- NOTE | 2019-12-25 08:57 | Brief Operative Note ---
Date of procedure: 12/03/19 Pre-op diagnosis: Cellulitis left foot Post-op diagnosis: same Procedure: Incision and drainage left foot Grafts/Implants: No Anesthesia: MAC Complications: none Surgeon: Faustino Phan Estimated blood loss (cc): 25 Specimens Removed/Pathology: other Condition: other (deep tissue culture) Disposition: floor
--- NOTE | 2019-12-25 10:22 | Operative Note ---
DATE OF OPERATION: 12/03/2019 PREOPERATIVE DIAGNOSIS: Cellulitis, left foot. POSTOPERATIVE DIAGNOSIS: Cellulitis, left foot. PROCEDURE: Incision and drainage, left foot. SURGEON: Faustino Phan DPM. IMPLANTS: None. ANESTHESIA: MAC. COMPLICATIONS: None. BLOOD LOSS: 25 mL. CONDITION: Stable. DISPOSITION: PACU. PROCEDURE IN DETAIL: The patient was brought to the operating room and placed on the operating table in supine position. The left lower extremity was scrubbed, prepped, and draped in the usual aseptic fashion. Monitored anesthesia care initiated. There was noted to be enlarged, swollen left foot with a medial wound with purulent drainage. Purulence was expressed and a culture was taken for microbiological assessment. The area was opened with a hemostat. There was a communicating tract of sinus drainage on the lateral aspect. A 3 liter bag of normal saline was used to irrigate this wound under pulse lavage. After it was inspected and found and removed of any necrotic tissue, the area was packed with half-inch Betadine-soaked packing, gauze, 4 x 4s, Kerlix, and Nakul wrap. The patient tolerated the procedure and anesthesia well and was transferred to postoperative care unit with vital signs stable and vascular status intact to the foot. He will be transferred to the floor when discharged from the PACU. KDMinh:chyna Job ID: [id number] Doc ID: [id number] Faustino Phan DPM
== END 2019-12-05 14:00 | disposition home or self-care (01) | DRG 988 ==
LOC: MEDSUR 17:45
PROVIDERS: ADMIT Internal Medicine; ATTEND Internal Medicine